=== PATIENT | female | born 1955 | race Caucasian/White ===

== ENCOUNTER 2016-11-02 16:40 | Emergency (ER) | payer MEDICARE, OTHER ==
[~2016-11-02] VITALS: Ht 157.5 cm; Wt 66.8 kg
[~2016-11-02 16:40] MED LIST: BACI28.4 TOP; DOCU-41 PO; ESOM40CA53 PO; FENT1PAT7 TRANSDERM; FURO-128 PO; GABA-502 PO; KLO1T PO; KLO2T PO; METO-301 PO; METO25TA6 PO; OXYC5TAB72 PO; POTA10CA42 PO; SENN1TAB90 PO; TRAZ-118 PO; ZLP10T PO
[2016-11-02 16:48] VITALS: BP 105/81; PULSE 104; RESP 15; O2SAT 95
[2016-11-02 19:56] LABS: BASOPHILS % (AUTO) 0.2 % (0-3); EOSINOPHILS % (AUTO) 0.5 % (0-5); MONOCYTES % (AUTO) 6.9 % (4-12); Mean Corpuscular Hemoglobin 30.6 pg (27.0-35.0); NEUTROPHILS % (AUTO) 61.9 % (40-74); Platelet Count 188 bil/L (150-400)
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
[2016-11-02] MEDS ORDERED: HYDROmorphone 1 mg/mL Inj IVPUSH ONE ×2 (20:55→22:40)
[2016-11-02] MEDS ORDERED: Ondansetron 2 mg/mL 2 mL Inj IVPUSH ONE (20:55)
[2016-11-02] MEDS ORDERED: 0.9% Sodium Chloride 1,000 ML IV ONE (20:55)
--- NOTE | 2016-11-02 21:05 | DRSVH ---
PROCEDURE: X-RAY CHEST, TWO VIEWS ([id number]) INDICATIONS: fever, cough TECHNIQUE: 2 views of the chest were acquired. COMPARISON: None. FINDINGS: Surgical changes and devices: None. Lungs and pleura: No pleural effusions or pneumothorax. Lungs are clear. Mediastinum: Mediastinal contours are normal. Heart size is normal. Bones and chest wall: No suspicious bony abnormalities. Soft tissues appear unremarkable. IMPRESSION: No acute cardiopulmonary findings. Dictated by: Jennifer Gonzalez M.D. on 11/02/2016 at 21:03 Approved by: Jennifer Gonzalez M.D. on 11/02/2016 at 21:03
[2016-11-02] MEDS ORDERED: Bupivacaine-MPF 0.5% 30 mL Inj ONE (21:29)
[2016-11-02 21:30] VITALS: BP 106/64; PULSE 72; RESP 20; O2SAT 96
[2016-11-02 22:51] LABS: APPEARANCE,CSF CLEAR (CLEAR); COLOR,CSF COLORLESS (COLORLESS); WHITE BLOOD CELL,CSF 0 /mm3 (0-5)
[2016-11-02] MEDS ORDERED: BENZ-12 PO (23:43)
[2016-11-02] MEDS ORDERED: ONDA8TAB10 PO (23:43)
[2016-11-03 00:04] VITALS: BP 106/64; PULSE 72; RESP 16; O2SAT 96
== END 2016-11-03 00:05 | disposition home or self-care (01) ==
LOC: SED 16:40
DX: J06.9 Acute upper respiratory infection, unspecified (principal); I10 Essential (primary) hypertension; K21.9 Gastro-esophageal reflux disease without esophagitis; Z88.2 Allergy status to sulfonamides; Z88.5 Allergy status to narcotic agent; Z88.8 Allergy status to other drugs, medicaments and biological substances
CPT/HCPCS: 36415; 62270; 71020; 80053; 82945; 84155; 85025; 87070; 87150; 87205; 87496; 87498; 87529; 87532; 87798; 87804; 89051; 96374; 96375; 96376; 99285; J1170; J2405; J7030

== ENCOUNTER 2017-01-31 22:35 | Inpatient (IN) | payer MEDICARE, OTHER ==
[~2017-01-31] VITALS: Ht 157.5 cm; Wt 61.4 kg
[~2017-01-31 22:35] MED LIST changes: +BENZ-12 PO; +ONDA8TAB10 PO
[2017-01-31 22:39] VITALS: BP 122/74; PULSE 100; RESP 16; O2SAT 94
[2017-01-31] MEDS ORDERED: 0.9% Sodium Chloride 1,000 ML IV ONE (23:27)
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
[2017-01-31 23:45] VITALS: BP 99/65; PULSE 83; RESP 12; O2SAT 96
[2017-02-01] VITALS (13 sets, daily range): BP systolic 95–156; BP diastolic 65–87; PULSE 60–79; RESP 12–20; O2SAT 94–98
[2017-02-01] MEDS ORDERED: cefTRIAXone Inj 2,000 MG in Dextrose 5% Minibag Plus 50 ML IV ONE ×2
[2017-02-01 00:06] LABS: BASOPHILS % (AUTO) 0.2 % (0-3); EOSINOPHILS % (AUTO) 0 % (0-5); MONOCYTES % (AUTO) 3.3 % (4-12); Mean Corpuscular Hemoglobin 31.2 pg (27.0-35.0); NEUTROPHILS % (AUTO) 85.3 % (40-74); Platelet Count 191 bil/L (150-400)
[2017-02-01 01:01] LABS: TROPONIN T 0.01 ug/L (0.0-0.011)
[2017-02-01] MEDS ORDERED: oxyCODONE-Acetamin 5-325 mg Tablet PO ONE (01:10)
[2017-02-01 01:14] LABS: APPEARANCE,URINE CLEAR (CLEAR,HAZY); COLOR,URINE YELLOW (YELLOW); OCCULT BLOOD,URINE NEGATIVE (NEGATIVE); PH,URINE 5.5 (5.0-8.0); UROBILINOGEN,URINE NORMAL (NORMAL)
[2017-02-01] MEDS ORDERED: Azithromycin Inj 500 MG in Dextrose 5% w/Vial Mate 250 ML IV ONE (02:20)
[2017-02-01] MEDS ORDERED: fentaNYL-PF 50 mCg/mL 2 mL Inj IVPUSH PRN (02:45)
[2017-02-01] MEDS ORDERED: 0.9% Sodium Chloride 1,000 ML IV ONE ×2 (02:50)
[2017-02-01] MEDS ORDERED: HYDROmorphone 0.5 mg/0.5 mL iSecure Syringe IVPUSH ONE (03:20)
[2017-02-01] MEDS ORDERED: Alum-Mag Hydrox-Simeth 30 mL Suspension PO PRN ×2 (03:20→03:35)
[2017-02-01] MEDS ORDERED: Albuterol 2.5 mg/3 mL Inhalation Solution NEB PRN (03:35)
[2017-02-01] MEDS ORDERED: HYDROcodone-APAP 5-325 mg Tablet PO PRN (03:35)
[2017-02-01] MEDS ORDERED: Albuterol-Ipratropium 3 mL Inhalation Solution NEB SCH (04:30)
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
[2017-02-01] MEDS ORDERED: LORazepam 1 mg Tablet PO PRN (04:55)
[2017-02-01 05:15] LABS: BASOPHILS % (AUTO) 0.2 % (0-3); EOSINOPHILS % (AUTO) 0 % (0-5); MONOCYTES % (AUTO) 2.7 % (4-12); Mean Corpuscular Hemoglobin 30.9 pg (27.0-35.0); Mean Corpuscular Volume 95.6 fL (81-100); NEUTROPHILS % (AUTO) 84.3 % (40-74); Platelet Count 159 bil/L (150-400)
[2017-02-01] MEDS: 0.9% Sodium Chloride 1,000 ML IV SCH ×2 (05:28→16:11)
[2017-02-01] MEDS: Ondansetron 2 mg/mL 2 mL Inj IVPUSH PRN ×2 (05:53→10:15)
[2017-02-01] MEDS: Albuterol-Ipratropium 3 mL Inhalation Solution NEB SCH ×4 (06:00→21:20)
[2017-02-01] MEDS ORDERED: OXYC-466 PO (07:14)
--- NOTE | 2017-02-01 07:20 | NUR ---
Admission Pt arrived from ER to [facility] # [id number] approx at 0355. Pt denies SOB. SPO2 mid-high 90s on RA. No respiratory distress noted. VSS. Admission assessment and screening completed. Med-Rec updated. Pt stated she had Flu swap done in urgent care clinic on Friday01/31/17. aware. No need to obtain another flu swap. Pt C/O GREEN 07/01. She was medicated with Oxycodone. Pt vomited x 1. Medicated with Zofran. Pt denies N/V. Another Oxycodone given. No overt complications noted.
[2017-02-01] MEDS ORDERED: RIZA10TA PO (07:46)
--- NOTE | 2017-02-01 10:11 | DRSVH ---
PROCEDURE: CT ANGIO CHEST PULMONARY EMBOLISM ([id number]) INDICATIONS: short of breath, chest pain, abnormal xray TECHNIQUE: After the administration of intravenous contrast, 2 mm thick sections acquired from the pulmonary api gene to the posterior costophrenic angles. 3-dimensional maximum intensity projection (MIP) coronal a nd sagittal reformats were then acquired through the thorax. For radiation dose reduction, the follo wing was used: automated exposure control, adjustment of mA and/or kV according to patient size. COMPARISON: [facility], , XR CHEST 2VW, 01/31/2017, 17:42. FINDINGS: Image quality: Excellent. Pulmonary arteries: Pulmonary arteries are normal in size, and demonstrate no intraluminal filling d efects to suggest central pulmonary embolism. Lungs and pleura: Large area of left perihilar consolidation is seen, with mild surrounding groundgl ass opacities. No pleural effusion or pneumothorax seen. There is mild by basilar atelectasis/scarrin g. Mediastinum: Heart size is mildly enlarged, without pericardial effusion. No mediastinal or hilar a denopathy. Thoracic aorta is normal in caliber and enhancement. Esophagus is normal in caliber, wit hout hiatal hernia. Bones and chest wall: No suspicious bony lesions. Ribs and thoracic spine appear intact throughout. Thyroid gland grossly unremarkable. No axillary or supraclavicular adenopathy. Abdomen: Visualized upper abdominal solid organs appear normal in the early arterial phase of enhanc ement. IMPRESSION: Large area of left perihilar, masslike consolidation presumably pneumonia although recommend short in terval followup with repeat radiographs or CT after treatment, to exclude neoplasm. No evidence of pulmonary embolism. Mild cardiomegaly. Dictated by: Duarte Wheatley M.D. on 02/01/2017 at 10:05 Approved by: Duarte Wheatley M.D. on 02/01/2017 at 10:10
--- NOTE | 2017-02-01 11:39 | PCM.PNMED ---
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 Patient presented to the ED for complaints of high fever and cough x 2 days. She was seen at UC day prior to admission and given a shot of Rocephin and started on a Z-venkata, but was instructed to go to the ED if symptoms worsen. Her fever did not improve, she had nonproductive cough, myalgias, nausea, and some vomiting, dizziness, and headache, so she came to the ED for further treatment. She has been unable to tolerate much oral intake and has had decreased urine output. She currently lives in [place] with her family, and has not had any sick contacts. She is currently retired and denies any recent travels or recent healthcare contact. She reports the symptoms came on fairly abruptly 2 days ago. She denies any history of smoking or COPD. She does have asthma and has been using her inhalers more frequently. In the ED she was noted to be febrile with temperature 37.9C. Initial CBC was remarkable for a hemoglobin of 11.3 and white count was 5.7. CMP was remarkable for hyponatremia with sodium of 130, lactic acid 1.7; Her d-dimer was moderately elevated, a CTA of her chest was performed which showed no evidence of pulmonary embolism, but there was a masslike consolidation left upper lobe, with diffuse left-sided reticulonodular infiltrates which is suspicious for pneumonia, but a neoplasm could not be excluded. Patient was started on IV Rocephin and IV azithromycin for presumed community- acquired pneumonia Patient c/o SOB, started prior to admission and had been getting worse, now improving, associated with general weakness; alleviated by rest, exacerbated by exertion. Patient is on 2 L O2 via NC. Code status: Patient would like to be full code. Exam Vital Signs Vital Sign - Last Date Time Temp Pulse Resp B/P Pulse Ox O2 Delivery O2 Flow Rate FiO2 02/01/17 11:01 62 02/01/17 09:30 36.3 12 133/74 97 Nasal Cannula 1.00 Intake and Output 01/31/17 01/31/17 02/01/17 Cumulative From/Thru 15:00 23:00 07:00 01/31/17 22:39 - 02/01/17 06:20 Intake Total 2366 ml 2366 ml Output Total 450 ml 450 ml Balance 1916 ml 1916 ml Intake Oral 250 ml 250 ml IV Total 2116 ml 2116 ml Output Urine Total 450 ml 450 ml Exam PHYSICAL EXAM: GENERAL: sleepy, moderate distress, cooperative HEAD: atraumatic, normocephalic, no bruises. EYES: NEFTALY, EOMI, anicteric, able to fully open and close eyelids SKIN: Skin color normal, turgor normal/decreased. No visible rashes or lesions. EAR, NOSE, MOUTH, THROAT: Lips, oral mucosa, tongue gums, oropharynx are moist , pink, no lesions. Ears normal appearance, no lesions. NECK: no jugulovenous distention, no carotid bruits, carotid pulse normal contour, No carotid bruit, supple, no enlarged lymph nodes appreciated; ROM normal. RESPIRATORY: Crackles b/l. Good diaphragmatic excursion. Normal percussion sound. CARDIAC: normal S1 and S2; no rubs, murmurs, or gallops; regular rate and rhythm ABDOMEN: Abdomen soft, non-tender. BS normal. No masses or organomegaly. MUSCULOSKELETAL: ROM full, muscles are not tender EXTREMITIES: nopitting edema in LE, no deformities, clubbing or skin discoloration. NEURO: Alert, oriented X 3, Sensation grossly intact., Cranial nerves II-XII intact, Grossly normal motor function. PULSES: 2+ radial, 2+ dorsalis pedis, 2+ carotid REVIEW OF SYSTEMS: GENERAL: +malaise, no fevers., SEE HPI HEENT: Negative for frequent or significant headaches, No changes in hearing or vision, no nose bleeds or other nasal problems NECK: Negative for lumps, goiter, pain and significant neck swelling RESPIRATORY: + for shortness of breath. CARDIOVASCULAR: Negative for chest pain, leg swelling or palpitations. All other reviewed and negative other than HPI. IVs and Medications Medications Reviewed: Medications were reviewed in detail Lab and Diagnostics Result Diagram: 02/01/17 0505 02/01/17 0505 X-Rays, CTs and MRIs ECG Interpretation ECG Interpretation: Sinus rhythm rate 84 T-wave inversion V1-V4 unchanged from prior 05/13/15 Time: 23:39 Interpreted by: ED physician CT Chest Interpretation CONCLUSION: No evidence of pulmonary embolism. Masslike consolidation in the left upper lobe with diffuse left-sided reticulonodular infiltrate, nonspecific, probable pneumonia. Neoplasm is not excluded. Nonenlarged mediastinal lymph nodes. Mild cardiomegaly. Transmitted to the ED at 02/01/2017 - 2:12:55 AM PDT Study type: CT pulm angiogram Interpretation / Wet Read by: Interpret - Radiologist (Lucille Brown M.D. 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 Patient was diagnosed with sepsis present on admission, acute hypoxic respiratory failure, pneumonia. Sepsis, present on admission. Acute hypoxic respiratory failure, POA, pneumonia , Mass like lesion on CT scan - Continue with antibiotics, respiratory therapy, oxygen - Follow up blood cultures - Viral respiratory PCR panel pending, along with urine strep and urine Legionella Elevated glucose, acute -hgba1c pending Hyponatremia.Dehydration. - Improved - Continue to hydrate with ivf History of CHF Patient reports a history of CHF, but last echo showed LVEF of 60% with no discernible diastolic dysfunction Chronic pain syndrome - Continue with home medications Hypertension - Hold blood pressure medications for now Hyperlipidemia,GERD, Chronic migraines, Anxiety and depression Continue with home medications Anemia - stable - most likely anemia of chronic disease - stable, no signs of bleeding Plan - Monitor for signs of bleeding and transfuse if Hb is less than 8 and patient or POA(next of junior) consents to transfusion, monitor CBC daily DVT PROPHYLAXIS: Lovenox sq Disposition: discharge in 1-3 days after patient improves. Labs, radiology tests, Tele and ECG reviewed. Plan of care, medication side effects, home medication, diagnostic procedures and available alternatives were discussed and reviewed with patient. All questions answered. Patient verbalized understanding, approved and agreed to plan of care. Given patient's current condition, I certify, in my opinion inpatient services greater than two midnights are medically necessary for this patient. Please see H&P and MD progress notes for additional information about patient's course of treatment. Pain Evaluation: Adequate Pain Control VTE Prophylaxis: Sub-Q Enoxaparin, SCDs Resuscitation Status: CPR: Attempt Resuscitation Viktor iSn MD February 01, 2017 11:39 Chronic migraines, POA Resume patient's home medications when appropriate . Anxiety and depression, POA Resume patient's home medications when appropriate. Tylenol when necessary for fever/pain Zofran when necessary for nausea Bowel regimen when necessary for constipation CODE STATUS: Full resuscitation Disposition: Patient is admitted under inpatient status with expected length of stay greater than 2 midnights due to risk of adverse events, decompensation, and medical complexity VTE Prophylaxis: Sub-Q Enoxaparin, SCDs Resuscitation Status: CPR: Attempt Resuscitation Viktor Sin MD February 01, 2017 11:39
--- NOTE | 2017-02-01 15:20 | NUR ---
Social work: initial Assessment Data & Assessment: See initial assessment. EMR reviewed. patient is a 61 y/o female that admitted on 02/01/17 for pneumonia per H&P. SW met with patient at bedside to complete initial assessment, SW role reviewed, initial assessment complete and dc planning discussed. patient's PCP is Dr. tracey Freire. Patient confirmed that he r insurance is Medicare and secondary. Patient reports no LTC or VA benefits. Patient does not have a re-admit score at this time. Mixed Signal Design Engineer provided patient with Advance Directive/DPOA paperwork. Patient lives in a two story home with her spouse. patient has 4 steps to enter and 14 steps on the inside. Patient is independent with amulation and does not drive. patient reports no HH or SNF history. patient does not have any current discharge needs, but SW will continue to follow and assist patient. SW wrote contact information on patient's white board. Plan: Patient will likely discharge home with spouse via POV. SW will continue to follow and assist patient throughout stay. Keith Min LMSW, KARLA Addendum: 02/01/17 at 1534 by KEITH ESPINAL Amended: Links added.
[2017-02-01] MEDS: oxyCODONE-Acetamin 10-325 mg Tablet PO PRN ×2 (16:10→22:12)
--- NOTE | 2017-02-01 17:24 | NUR ---
Continued headache, intermittent nausea. Oxycodone, Imitrex, Zofran helpful. Up to bathroom w/ SBA. Less somnolent this afternoon. MD updated patient/family regarding plan of care, medications, etc. Daughter expressing anger/hostility towards staff stating her mother was not receiving enough Oxycodone or her home medications. Concern expressed to family/patient regarding her "usual medications" and persisting somnolence. concerned this evening for need to "monitor her oxygen", indicating that she has been known to desat while sleeping and may have sleep apnea. Will monitor with MP30 w/ pulse oximetry.
[2017-02-01] MEDS ORDERED: Ondansetron 2 mg/mL 2 mL Inj IVPUSH PRN (19:20)
[2017-02-01] MEDS: Pantoprazole 40 mg ER24 Tablet PO SCH (20:04)
[2017-02-01] MEDS: Azithromycin Inj 500 MG in Dextrose 5% w/Vial Mate 250 ML IV SCH (20:06)
[2017-02-01] MEDS: cefTRIAXone Inj 2,000 MG in Dextrose 5% Minibag Plus 50 ML IV SCH (21:42)
[2017-02-02] VITALS (13 sets, daily range): BP systolic 104–123; BP diastolic 61–76; PULSE 59–91; RESP 16–20; O2SAT 93–100
[2017-02-02] MEDS: oxyCODONE-Acetamin 10-325 mg Tablet PO PRN ×3 (04:29→16:51)
--- NOTE | 2017-02-02 04:31 | NUR ---
NOC PT is A/Ox3. Lungs are diminished. PT is on 2l NC while awake and 4lNC when asleep. PT is a mouth breather and is also mildly sedated, which contribute to her desaturation at noc. ACCOUNTS ADJUSTABLE CLERK on continuous. Daughter Mine at the bedside. Dtr is overly involved with pt's care and seems to suggest to her mom what meds to take, when, where and why. This is a high tension room because of family presence. Mine was very aggressive with hammerer tab Edward and was also quite short with this RN once when trying to offer an explanation for pt's low grade temp as she had on 4 blankets, fleece pj bottoms, and SCD's. PT is much more laid back when family not present and if they continue to interfere with care, their continued presence may need to be reevaluated. Nursing sup also spoke with pt and dtr. Otherwise, pt continues to c/o pain in various places and has not rated her pain below a 7 although she is mildly sedated. Tylenol given for temp of 101 and then ice packs used when tylenol was ineffective. PT only kept them on for about 20minutes. PT is a SBA to BR with FWW. Voiding adequate amounts. WIll CTM.
[2017-02-02] MEDS: Albuterol-Ipratropium 3 mL Inhalation Solution NEB SCH ×4 (07:31→20:27)
[2017-02-02] MEDS: Pantoprazole 40 mg ER24 Tablet PO SCH ×2 (08:36→20:00)
[2017-02-02] MEDS: Polyethylene Glycol (PEG) 17 Gm Powder PO PRN (08:36)
[2017-02-02 10:06] LABS: Mean Corpuscular Hemoglobin 31.2 pg (27.0-35.0); Mean Corpuscular Volume 97.7 fL (81-100)
[2017-02-02] MEDS ORDERED: Glucose 40% Oral Gel 15 Gm Tube PO PRN (10:52)
--- NOTE | 2017-02-02 11:05 | PCM.PNMED ---
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 Patient was diagnosed with sepsis, acute hypoxic respiratory failure secondary to pneumonia. Hospital day #2. Overnight: No acute events. Per nursing report there was some discord with the patient's family. Today: The patient appears somnolent and is stating that her breathing is unchanged for yesterday but that she overall feels terrible. She is forgetful and repeats questions during the visit. She denies any chest pain but notes a intermittent headache and other pains and aches, cough. The remainder of the review of systems is negative except as noted above. Exam Vital Signs Vital Sign - Last Date Time Temp Pulse Resp B/P Pulse Ox O2 Delivery O2 Flow Rate FiO2 02/02/17 09:49 77 02/02/17 08:42 Supplement Oxygen 02/02/17 08:25 37.0 18 105/61 95 1.00 Intake and Output 02/01/17 02/01/17 02/02/17 Cumulative From/Thru 15:00 23:00 07:00 01/31/17 22:39 - 02/02/17 06:21 Intake Total 1100 ml 240 ml 3706 ml Output Total 2050 ml 900 ml 3400 ml Balance -950 ml -660 ml 306 ml Intake Oral 200 ml 240 ml 690 ml IV Total 900 ml 3016 ml Output Urine Total 2050 ml 900 ml 3400 ml Exam GENERAL: sleepy, in no acute distress, cooperative, forgetful. HEAD: atraumatic, normocephalic, no bruises. EYES: NEFTALY, EOMI, anicteric, able to fully open and close eyelids SKIN: Skin color normal, turgor normal/decreased. No visible rashes or lesions. EAR, NOSE, MOUTH, THROAT: Lips, oral mucosa, tongue gums, oropharynx are moist , pink, no lesions. NECK: no jugulovenous distention, supple, no enlarged lymph nodes appreciated; ROM normal. RESPIRATORY: Crackles b/l, worse on the left. Good diaphragmatic excursion. CARDIAC: normal S1 and S2; no rubs, murmurs, or gallops; regular rhythm ABDOMEN: Abdomen soft, non-tender. BS normal. No masses or organomegaly. MUSCULOSKELETAL: ROM full, muscles are not tender EXTREMITIES: no pitting edema in lower extremities, no deformities, clubbing or skin discoloration. NEURO: Alert, oriented X 3, Cranial nerves II-XII intact, Grossly normal motor function. IVs and Medications Medications Reviewed: Medications were reviewed in detail Lab and Diagnostics Result Diagram: 02/02/17 0950 02/01/17 0505 X-Rays, CTs and MRIs CT ANGIO CHEST PULMONARY EMBOLISM IMPRESSION: Large area of left perihilar, masslike consolidation presumably pneumonia although recommend short interval followup with repeat radiographs or CT after treatment, to exclude neoplasm. No evidence of pulmonary embolism. Mild cardiomegaly. Dictated by: Duarte Wheatley M.D. 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 Patient was diagnosed with sepsis, acute hypoxic respiratory failure secondary to pneumonia. Hospital day #2. Sepsis, present on admission. Active. Secondary to pneumonia. - PNA presenting with peribronchial consolidation and mass-like lesion on CTA of chest - Follow up blood cultures - Viral respiratory PCR panel pending - urine strep and urine Legionella antigens negative - Antibiotic day #2, on Rocephin and Azithromycin for CAP Acute hypoxic respiratory failure, present on admission. Active. -Supplemental O2 as needed, respiratory therapy following Hyperglycemia, present on admission, acute -hgba1c pending -Patient continues to have a blood glucose of over 180, will initiate low-dose correctional lispro Hypovolemic hyponatremia, present on admission, resolved. -Responded nicely to normal saline, will continue. Normocytic normochromic anemia, present on admission, active, stable. -Iron studies ordered -We will continue to monitor with daily CBC. History of CHF - Patient reports a history of CHF, but last echo showed LVEF of 60% with no discernible diastolic dysfunction Chronic pain syndrome - stable - Continue with home medications Hypertension - stable - Hold blood pressure medications for now Chronic problems, present on admission: Hyperlipidemia - stable -Continue with home medications GERD -Continue with home medications Chronic migraines -Continue with home medications - patient never had immiging studies to evaluate these migranes. - will order MRI of the brain Anxiety and depression -Continue with home medications DVT PROPHYLAXIS: Lovenox sq Disposition: Likely patient will be in the hospital for 2-3 more days as she is evaluated and treated for the above conditions. VTE Prophylaxis: Sub-Q Enoxaparin, SCDs VTE Mechanical Devices: Intermittant Pneumatic CD Resuscitation Status: CPR: Attempt Resuscitation Time spent 35 min Attending Statement Patient was seen and examined by me today. I confirmed pertinent physical exam findings and agree with physical exam as documented by resident. I agree with overall assessment and plan of care as documented. Labs, radiology tests reviewed. Plan of care, medication side effects, home medication, diagnostic procedures and available alternatives were discussed and reviewed with the patient. All questions answered. Patient verbalized understanding, approved and agreed to plan of care. Melida Jimenez DO February 02, 2017 10:40 Viktor Sin MD February 02, 2017 17:34
[2017-02-02 11:41] LABS: Unsaturated Iron Binding 250.8 ug/dL
[2017-02-02] MEDS: Insulin LISPRO 300 Unit/3 mL Inj SUBQ SCH ×3 (12:00→21:56)
--- NOTE | 2017-02-02 18:25 | NUR ---
Temperature/GREEN/Respiratory Patient 1730 vital signs showed temp of 100.7 F. Administered 10/325 [place] per patient request in addition to 650 PO Tylenol. Rechecked approx 1 hour later, temp 100.2 F -- paged. No reports of chest pain/pressure/discomfort. Tele SR 70s with no ectopy. Reports no SOB at rest, reports "some" SOB with exertion. SPO2 weaned from 3L NOC to 0.5L NC while awake, SPO2 at 94. RR within normal limits. Intermittent cough -- non productive. Reports moderate nausea throughout shift, PO Reglan given x2. Reports chronic constipation, states "it's been this way since I was a little kid", not uncommon for her to go for a few weeks without BM (last documented BM 01/20/17). Administered Docusate and Miralax, no emesis. Voiding urine without complication.Alert and oriented x3, drowsy. Patient has had 6-8/10 GREEN throughout shift -- [place] and tylenol provide "little to no relief" -- MD consulted, MRI ordered.
[2017-02-02] MEDS: cefTRIAXone Inj 2,000 MG in Dextrose 5% Minibag Plus 50 ML IV SCH (20:00)
[2017-02-02] MEDS: Azithromycin Inj 500 MG in Dextrose 5% w/Vial Mate 250 ML IV SCH (22:10)
[2017-02-03] VITALS (12 sets, daily range): BP systolic 105–122; BP diastolic 70–88; PULSE 50–88; RESP 16–20; O2SAT 93–98
--- NOTE | 2017-02-03 01:35 | NUR ---
Resp/headache Pt on 2L via NC overnight CPOx mid 90s O2 sats, reporting sob with activity. Pt reporting headache back up to 05/01, pt given Imitrex per eMAR and oxycodone for generalized body pain/aches. Pt requested Tylenol as well because she "felt feverish" pt slightly warm to touch but temp was 36.8. Pt also given Trazodone, Clonazepam and Ambien per eMAR for bedtime. Pt on tele and has been SR 60s.
[2017-02-03] MEDS: Albuterol-Ipratropium 3 mL Inhalation Solution NEB SCH ×4 (07:44→19:39)
[2017-02-03 07:48] LABS: BASOPHILS % (AUTO) 0.2 % (0-3); EOSINOPHILS % (AUTO) 1.4 % (0-5); MONOCYTES % (AUTO) 9.7 % (4-12); Mean Corpuscular Hemoglobin 30.5 pg (27.0-35.0); Mean Corpuscular Volume 96.1 fL (81-100); NEUTROPHILS % (AUTO) 57.4 % (40-74); Platelet Count 197 bil/L (150-400)
[2017-02-03] MEDS: Insulin LISPRO 300 Unit/3 mL Inj SUBQ SCH ×4 (08:00→22:00)
[2017-02-03] MEDS: Pantoprazole 40 mg ER24 Tablet PO SCH ×2 (08:40→23:01)
--- NOTE | 2017-02-03 09:39 | DRSVH ---
PROCEDURE: MRI BRAIN WITH AND WITHOUT CONTRAST ([id number]) INDICATIONS: headaches TECHNIQUE: Noncontrast axial T1 spin echo, axial T2 fast spin echo, sagittal and axial FLAIR, coronal T2 fast sp in echo, axial gradient echo, axial diffusion and ADC through the brain. After the administration of contrast, axial and coronal T1 spin echo with fat saturation through the brain. COMPARISON: [facility], CT, BRAIN W/O CONTRAST, 09/18/2013, 0:47. FINDINGS: Image quality: Excellent. CSF spaces: Basal cisterns are patent. No extra-axial fluid collections. Ventricles are normal in size and shape. Brain: No midline shift. No intracranial bleeds or masses. No abnormal intracranial enhancement. There is cerebral volume loss for age. There is periventricular white matter chronic small vessel is chemic change. The brainstem appears normal. Diffusion-weighted images demonstrate no acute ischemi c insults. No chronic ischemic insults. Normal intravascular flow voids are present. Skull and face: Calvarial marrow is normal in signal. Orbits appear normal. Sinuses: Bilateral maxillary sinus disease, which would better evaluated with CT. 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 Scant bilateral mastoid air cell fluid IMPRESSION: Bilateral (T2 hypointense) maxillary sinus disease as detailed above. Asymmetric hypoplastic appearan ce of the right maxillary sinus could represent silent sinus syndrome, versus chronic hypoplasia. Scattered bilateral mastoid air cell fluid. This is technically age indeterminate and recommend clini lorri correlation. No abnormal enhancement. Dictated by: Duarte Wheatley M.D. on 02/03/2017 at 9:24 Approved by: Duarte Wheatley M.D. on 02/03/2017 at 9:37
--- NOTE | 2017-02-03 13:23 | PCM.PNMED ---
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 Patient was diagnosed with sepsis, acute hypoxic respiratory failure secondary to pneumonia. Hospital day #3. Overnight: No acute events. Patient continued to complain of headache. He also complained of subjective fever however temperature was normal upon measurement. Today: She is forgetful and repeats questions during the visit. Patient continues to complain of headaches are not responding to Imitrex. She noted chills overnight. She continues to have a nonproductive cough. She denies any chest pain or shortness of breath. She does complain of constipation, she has iron deficiency anemia, she will need a colonoscopy after her infection resolves. She also c/o frequent headaches. Patient had MRI today which was positive for sinusitis. The remainder of the review of systems is negative except as noted above. Exam Vital Signs Vital Sign - Last Date Time Temp Pulse Resp B/P Pulse Ox O2 Delivery O2 Flow Rate FiO2 02/03/17 11:45 50 20 98 Nasal Cannula 1.50 02/03/17 08:32 37.5 105/70 Intake and Output 02/02/17 02/02/17 02/03/17 Cumulative From/Thru 15:00 23:00 07:00 01/31/17 22:39 - 02/03/17 06:01 Intake Total 1148 ml 780 ml 5634 ml Output Total 600 ml 2250 ml 6250 ml Balance 548 ml -1470 ml -616 ml Intake Oral 550 ml 400 ml 1640 ml IV Total 598 ml 380 ml 3994 ml Output Urine Total 600 ml 2250 ml 6250 ml # Voids 1 5 6 # Bowel Movements 0 0 Exam GENERAL: sleepy, in no acute distress, forgetful. HEAD: atraumatic, normocephalic, no bruises. EYES: NEFTALY, EOMI, anicteric, able to fully open and close eyelids SKIN: Skin color normal, turgor normal/decreased. No visible rashes or lesions. EAR, NOSE, MOUTH, THROAT: Lips, oral mucosa, tongue gums, oropharynx are moist , pink. NECK: no jugulo venous distention, supple; ROM normal. RESPIRATORY: Crackles bilaterally, worse on the left. Good diaphragmatic excursion. CARDIAC: normal S1 and S2; no rubs, murmurs, or gallops; regular rhythm ABDOMEN: Abdomen soft, non-tender. BS normal. No masses or organomegaly. MUSCULOSKELETAL: ROM full, muscles are not tender EXTREMITIES: no pitting edema in lower extremities, no clubbing or skin discoloration. NEURO: Alert, oriented X 3, Cranial nerves II-XII intact, Grossly normal motor function. IVs and Medications Medications Reviewed: Medications were reviewed in detail Lab and Diagnostics Result Diagram: 02/03/17 0735 02/03/17 0735 X-Rays, CTs and MRIs CT ANGIO CHEST PULMONARY EMBOLISM IMPRESSION: Large area of left perihilar, masslike consolidation presumably pneumonia although recommend short interval followup with repeat radiographs or CT after treatment, to exclude neoplasm. No evidence of pulmonary embolism. Mild cardiomegaly. Dictated by: Duarte Wheatlye M.D. on 02/01/2017 at 10:05 MRI BRAIN WITH AND WITHOUT CONTRAST IMPRESSION: Bilateral (T2 hypointense) maxillary sinus disease as detailed above. 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 Scattered bilateral mastoid air cell fluid. This is technically age indeterminate and recommend clinical correlation. No abnormal enhancement. Dictated by: Duarte Wheatley M.D. 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 Patient was diagnosed with sepsis, acute hypoxic respiratory failure secondary to pneumonia. Hospital day #3 Acute hypoxic respiratory failure, present on admission. Active. Sepsis, present on admission. Active. Secondary to pneumonia. - PNA presenting with peribronchial consolidation and mass-like lesion on CTA of chest - Follow up blood cultures - Viral respiratory PCR panel negative - urine strep and urine Legionella antigens negative - Antibiotic day #3, on Rocephin and Azithromycin for CAP -Supplemental O2 as needed, respiratory therapy following Normocytic normochromic anemia, present on admission, active, stable. -Iron low, sat low, TIBC normal, probably iron deficiency anemia as well as anemia of chronic disease -We will continue to monitor with daily CBC. -Start iron supplementation - patient will need to evaluate the cause of anemia after her infection resolves. Hyperglycemia, present on admission, acute -hgba1c pending -Patient continues to have a blood glucose of over 180, will initiate low-dose correctional lispro Hypovolemic hyponatremia, present on admission, resolved. -Responded nicely to normal saline. Patient can take by mouth we will stop IV fluids. ?History of CHF - Patient reports a history of CHF, but last echo showed LVEF of 60% with no discernible diastolic dysfunction Chronic pain syndrome - stable - Continue with home medications Hypertension - stable - Hold blood pressure medications for now Chronic problems, present on admission: Hyperlipidemia - stable -Continue with home medications GERD -Continue with home medications Chronic migraines -Continue with home medications -MRI not revealing of any acute pathology in the brain. Note sinusitis. Sinusitis, chronic -Not under control Constipation, chronic, secondary to opiates -stable, not under control -Mag citrate Anxiety and depression -Continue with home medications DVT PROPHYLAXIS: Lovenox sq Disposition: Likely patient will be in the hospital for 2-3 more days as she is evaluated and treated for the above conditions. VTE Prophylaxis: Sub-Q Enoxaparin, SCDs VTE Mechanical Devices: Intermittant Pneumatic CD Resuscitation Status: CPR: Attempt Resuscitation Time spent 35 min Attending Statement Patient was seen and examined by me today. I confirmed pertinent physical exam findings and agree with physical exam as documented. I agree with overall assessment and plan of care as documented. Labs, radiology tests reviewed. Plan of care, medication side effects, home medication, diagnostic procedures and available alternatives were discussed and reviewed with the patient. All questions answered. Patient verbalized understanding, approved and agreed to plan of care. Melida Jimenez DO February 03, 2017 12:28 Viktor Sin MD February 03, 2017 15:01
[2017-02-03] MEDS ORDERED: Sodium Chloride NAS 45 mL Spray NASAL PRN (13:25)
--- NOTE | 2017-02-03 16:22 | NUR ---
Social Work Note: Continued Discharge Planning Data& Assessment: Per pt is not medically ready for discharge at this time. SW met with pt and pt family at bedside to check in and assess for any unmet needs. Pt is requiring oxygen at this time and normally does not wear any oxygen at home. Pt and pt family are just anxious for her to medically improve at this time. Pt ambulating at baseline in her room. Pt and pt family deny any needs at this time. SW to continue to follow. Plan: Anticipated discharge home via POV when medically ready. Pt and pt family deny any needs at this time. SW to continue to follow. DONELL Treadwell
--- NOTE | 2017-02-03 17:51 | NUR ---
Pain Pt reporting a constant headache today up to "05/01". She took imitrex x1 with little relief in symptoms. Pt receiving oxycodone 10mg q 6 hours and tylenol x2 during this shift. Pt reporting nausea related to her headache and is having a poor appetite. She was given reglan x2 for nausea.
[2017-02-03] MEDS: cefTRIAXone Inj 2,000 MG in Dextrose 5% Minibag Plus 50 ML IV SCH (20:50)
[2017-02-03] MEDS: Polyethylene Glycol (PEG) 17 Gm Powder PO PRN (23:00)
[2017-02-03] MEDS: oxyCODONE-Acetamin 10-325 mg Tablet PO PRN (23:01)
[2017-02-03] MEDS: Senna-Docusate 8.6-50 mg Tablet PO PRN (23:01)
[2017-02-03] MEDS: Azithromycin Inj 500 MG in Dextrose 5% w/Vial Mate 250 ML IV SCH (23:06)
[2017-02-04] VITALS (14 sets, daily range): BP systolic 101–119; BP diastolic 60–81; PULSE 57–94; RESP 14–18; O2SAT 93–97
--- NOTE | 2017-02-04 04:36 | NUR ---
Pain/Constipation/Respiratory Pt continues to c/o headache 6-07/01. Administered PRN Imitrex as well as Percocet and somewhat effective. Pt states she will get some relief for a short period of time. Pt also c/o chronic constipation and has not had a BM in weeks. Pt given mag citrate, Miralax, and senna without any BM at this time. Pt states this is a chronic condition for her. Pt on 1L NC with SpO2 94-96% pt also able to tolerate RA for a few hours with SpO2 92-95%. VSS and Tele SR.
[2017-02-04] MEDS: oxyCODONE-Acetamin 10-325 mg Tablet PO PRN ×3 (06:32→21:11)
[2017-02-04] MEDS: Albuterol-Ipratropium 3 mL Inhalation Solution NEB SCH ×4 (07:12→20:23)
[2017-02-04] MEDS: Insulin LISPRO 300 Unit/3 mL Inj SUBQ SCH ×2 (08:00→12:00)
[2017-02-04 08:30] LABS: BASOPHILS % (AUTO) 0.2 % (0-3); EOSINOPHILS % (AUTO) 3.9 % (0-5); Mean Corpuscular Hemoglobin 30.2 pg (27.0-35.0); Mean Corpuscular Volume 96.2 fL (81-100); NEUTROPHILS % (AUTO) 57.3 % (40-74); Platelet Count 206 bil/L (150-400)
[2017-02-04] MEDS: Pantoprazole 40 mg ER24 Tablet PO SCH ×2 (08:42→20:27)
[2017-02-04] MEDS: Senna-Docusate 8.6-50 mg Tablet PO PRN (08:42)
[2017-02-04] MEDS: Polyethylene Glycol (PEG) 17 Gm Powder PO PRN (08:47)
--- NOTE | 2017-02-04 11:25 | DRSVH ---
PROCEDURE: X-RAY KUB ([id number]) INDICATIONS: ?constipation TECHNIQUE: One view of the abdomen acquired. COMPARISON: [facility], CT, CT ABD PELVIS W CON, 05/11/2015, 21:56. FINDINGS: Surgical changes and devices: None. Bowel: Nonspecific bowel gas pattern is present. There are short air-fluid levels present within gas -filled bowel loops involving the right mid abdomen and upper quadrant, otherwise the bowel gas patte rn is normal. No pneumatosis or bowel wall thickening. Soft tissues: No suspicious abdominal calcifications. Visualized solid organ contours appear normal in size. Multiple left flank and pelvic calcifications redemonstrated similar to previous CT scan. Bones: No suspicious bony lesions. IMPRESSION: Nonspecific bowel gas pattern. If patient's symptoms persist, recommend repeat imaging or CT. Dictated by: Edward Kwan [facility] Interpreted: Angela Loza MD on 02/04/2017 at 11:22 Transcribed by: SUSAN on 02/04/2017 at 11:24 Approved by: Angela Loza MD, PhD on 02/04/2017 at 15:09
--- NOTE | 2017-02-04 11:25 | DRSVH ---
PROCEDURE: X-RAY CHEST ONE VIEW, PORTABLE ([id number]) INDICATIONS: PNEUMONIA TECHNIQUE: One view of the chest was acquired. COMPARISON: [facility], CR, CHEST 1VW (PORTABLE), 09/17/2013, 23:59. [facility] ital, CT, CT ANGIO CHEST PE, 02/01/2017, 1:56. [facility], CR, XR CHEST 2VW, 01/31/2017, 17:42. FINDINGS: Surgical changes and devices: None. Lungs and pleura: Interval increase in multifocal bilateral airspace opacities, most notably within t he left upper lobe which is masslike. Mediastinum: Mediastinal contours appear normal. Heart size is normal. Bones and chest wall: No suspicious bony lesions. Overlying soft tissues appear unremarkable. IMPRESSION: Worsening multifocal air space opacities likely pneumonia. Continued radiographic surveil arnel to resolution is recommended to exclude underlying neoplastic process. Dictated by: Edward SILVERMAN Interpreted: Angela Loza MD on 02/04/2017 at 11:19 Transcribed by: SUSAN on 02/04/2017 at 11:22 Approved by: Angela Loza MD, PhD on 02/04/2017 at 15:09
--- NOTE | 2017-02-04 13:26 | PCM.PNMED ---
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 Patient was diagnosed with sepsis, acute hypoxic respiratory failure secondary to pneumonia. Hospital day #4. Overnight: No acute events. Today: She is forgetful and repeats questions during the visit. The patient states she still feels quite fatigued and overall terrible. She has been walking around the room but not outside. The remainder of the review of systems is negative except as noted above. Exam Vital Signs Vital Sign - Last Date Time Temp Pulse Resp B/P Pulse Ox O2 Delivery O2 Flow Rate FiO2 02/04/17 10:52 68 02/04/17 10:49 16 94 Nasal Cannula 1.00 02/04/17 08:29 36.8 105/66 Intake and Output 02/03/17 02/03/17 02/04/17 Cumulative From/Thru 15:00 23:00 07:00 01/31/17 22:39 - 02/04/17 05:45 Intake Total 700 ml 861 ml 7195 ml Output Total 650 ml 450 ml 7350 ml Balance 50 ml 411 ml -155 ml Intake Oral 700 ml 500 ml 2840 ml IV Total 361 ml 4355 ml Output Urine Total 650 ml 450 ml 7350 ml # Voids 0 1 7 # Bowel Movements 0 Exam GENERAL: sleepy, in no acute distress, forgetful. HEAD: atraumatic, normocephalic, no bruises. EYES: NEFTALY, EOMI, anicteric, able to fully open and close eyelids SKIN: Skin color normal, turgor normal/decreased. No visible rashes or lesions. EAR, NOSE, MOUTH, THROAT: Lips, oral mucosa, tongue gums, oropharynx are moist , pink. NECK: no jugulo venous distention, supple; ROM normal. RESPIRATORY: Crackles bilaterally, worse on the left. Expiratory wheeze heard on the left, mid-thorax. Good diaphragmatic excursion. CARDIAC: normal S1 and S2; no rubs, murmurs, or gallops; regular rhythm ABDOMEN: Abdomen soft, non-tender. BS normal. No masses or organomegaly. MUSCULOSKELETAL: ROM full, muscles are not tender EXTREMITIES: no pitting edema in lower extremities, no clubbing or skin discoloration. NEURO: Alert, oriented X 3, Cranial nerves II-XII intact, Grossly normal motor function. IVs and Medications Medications Reviewed: Medications were reviewed in detail Lab and Diagnostics Result Diagram: 02/04/1781402/04/17814 X-Rays, CTs and MRIs CT ANGIO CHEST PULMONARY EMBOLISM IMPRESSION: Large area of left perihilar, masslike consolidation presumably pneumonia although recommend short interval followup with repeat radiographs or CT after treatment, to exclude neoplasm. No evidence of pulmonary embolism. Mild cardiomegaly. Dictated by: Duarte Wheatley M.D. on 02/01/2017 at 10:05 MRI BRAIN WITH AND WITHOUT CONTRAST IMPRESSION: Bilateral (T2 hypointense) maxillary sinus disease as detailed above. 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 Scattered bilateral mastoid air cell fluid. This is technically age indeterminate and recommend clinical correlation. No abnormal enhancement. Dictated by: Duarte Wheatley M.D. on 02/03/2017 at 9:24 X-RAY CHEST ONE VIEW, PORTABLE IMPRESSION: Worsening multifocal air space opacities likely pneumonia. Continued radiographic surveillance to resolution is recommended. Dictated by: Edward SILVERMAN Interpreted: Angela Loza MD on 02/04/2017 at 11:19 X-RAY KUB IMPRESSION: Nonspecific bowel gas pattern. If patient's symptoms persist, recommend repeat imaging or CT. 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 Patient was diagnosed with sepsis, acute hypoxic respiratory failure secondary to pneumonia. Hospital day #4 Acute hypoxic respiratory failure secondary to CAP, presenting with sepsis, present on admission. Active. - PNA presenting with peribronchial consolidation and mass-like lesion on CTA of chest - Follow up blood cultures - Viral respiratory PCR panel negative - urine strep and urine Legionella antigens negative - Antibiotic day #4, on Rocephin and Azithromycin for CAP - Supplemental O2 as needed, respiratory therapy following Normocytic normochromic anemia, present on admission, active, stable. -Iron low, sat low, TIBC normal, probably iron deficiency anemia as well as anemia of chronic disease -We will continue to monitor with daily CBC. -Start iron supplementation with ferrous gluconate -patient will need to evaluate the cause of anemia outpatient. Hyperglycemia, present on admission, resolved -hgba1c normal. -blood glucose normalized, will stop correctional Lispro Hypovolemic hyponatremia, present on admission, resolved. -Responded nicely to normal saline. IVF stopped. ?History of CHF - Patient reports a history of CHF, but last echo showed LVEF of 60% with no discernible diastolic dysfunction Chronic pain syndrome - stable - Continue with home medications Hypertension - stable - Hold blood pressure medications for now Chronic problems, present on admission: Hyperlipidemia - stable -Continue with home medications GERD -Continue with home medications Chronic migraines -Continue with home medications -MRI not revealing of any acute pathology in the brain. Note sinusitis. Sinusitis, chronic -Not under control Constipation, secondary to opiates -stable, not under control -KUB not revealing of severe constipation -will add Dulcolax suppository Anxiety and depression -Continue with home medications DVT PROPHYLAXIS: Lovenox sq Disposition: Likely patient will be in the hospital for 2-3 more days as she is evaluated and treated for the above conditions. VTE Prophylaxis: Sub-Q Enoxaparin, SCDs VTE Mechanical Devices: Intermittant Pneumatic CD Resuscitation Status: CPR: Attempt Resuscitation Attending Statement Patient seen and examined with housestaff. Agree with all attached documentation. Melida Jimenez DO February 04, 2017 11:45 Moose Kearns MD February 06, 2017 07:55
--- NOTE | 2017-02-04 14:29 | NUR ---
Pain/Nausea/constipation Pt reports headache at 8/10 today. She has been administered Percocet x1, Imitrex x1 and Roxycodone x1. She reports that she starts to get relief for an hour or so before the pain comes back. Discussed with the pt what medications she has available for pain, and decided on a plan of spacing out pain medications every 3 hours for best coverage. Pt also c/o constant nausea. Reglan given with some relief. Pt offered Zofran but declined stating that Zofran does not work for her. Pt administered Miralax and Sennakot Po for pt's ongoing constipation.
--- NOTE | 2017-02-04 15:37 | NUR ---
Evaluation completed. Please go to "Notes" then click on "Assessments and Notes" (bottom left corner of screen). Then select appropriate discipline tab on top of screen.
[2017-02-04] MEDS ORDERED: Potassium Chloride 20 mEq SR Tablet PO ONE (15:45)
[2017-02-04] MEDS: cefTRIAXone Inj 2,000 MG in Dextrose 5% Minibag Plus 50 ML IV SCH (20:20)
[2017-02-05] VITALS (9 sets, daily range): BP systolic 107–142; BP diastolic 73–79; PULSE 66–82; RESP 16–20; O2SAT 94–99
[2017-02-05 02:46] LABS: BASOPHILS % (AUTO) 0.3 % (0-3); MONOCYTES % (AUTO) 7.8 % (4-12); Mean Corpuscular Hemoglobin 30.4 pg (27.0-35.0); Mean Corpuscular Volume 96.2 fL (81-100); Platelet Count 243 bil/L (150-400)
--- NOTE | 2017-02-05 05:59 | NUR ---
Pain Management: Pt medicated just after midnight for pain/anxiety/nausea. Pt awoken this am with no complaints. Pt stable throughout the night. Will cont. to monitor.
[2017-02-05] MEDS: oxyCODONE-Acetamin 10-325 mg Tablet PO PRN ×2 (06:36→14:32)
[2017-02-05] MEDS: Albuterol-Ipratropium 3 mL Inhalation Solution NEB SCH ×4 (08:12→21:07)
[2017-02-05] MEDS: Polyethylene Glycol (PEG) 17 Gm Powder PO PRN (08:21)
[2017-02-05] MEDS: Senna-Docusate 8.6-50 mg Tablet PO PRN (08:21)
[2017-02-05] MEDS: Pantoprazole 40 mg ER24 Tablet PO SCH ×2 (08:22→20:04)
--- NOTE | 2017-02-05 13:57 | NUR ---
NUTRITION ASSESSMENT: ASSESS: Pt is a 61yo F admitted for pneumonia. She has had persistent nausea and has only been able to tolerate bites of food x4 days. When spoke with pt she seemed a bit distant/confused. Discussed eating bland foods when nauseous and trying to eat smaller more frequent meals. Discussed the importance of eating to help keep her strength up to help aide in healing process. Pt has not had a BM since admit but is receiving bowel meds. PMHX: Asthma, HTN, HLD, GERD, CHF LABS: Reviewed. [place] .48, Glu 104 MEDS: Reviewed. Senna, miralax GI: 0 bm SKIN: 0 major issues CURRENT WTS: 68kg, BMI 27.4kg/m2, admit wt 68.4kg DIET: Heart healthy, PO bites EST. NEEDS: Kcals: 0912-3502 kcal/day (25-30kcal/kg) Pro: 70-80g/day (1.0-1.2g/kg) NUTRITION DIAGNOSIS: 1.) Inadequate oral intake related to persistent nausea as evidence by pt only eating bites x4 days. NUTRITION INTERVENTION: 1.) Discussed foods to eat when nauseous and trying to eat smaller more frequent meals. Discussed higher kcal/pro foods that pt would be willing to try. Encouraged pt to continue to try to eat her meals to help with healing and to keep her strength up. Pt expressed understanding although she seemed a bit out of it. 2.) Will add yogurt on all trays per pt preference. ( she does not like Ensure) MONITOR / EVAL: PO, BM, wt, labs, POC, nutrition status. Will continue to monitor per moderate nutrition risk guidelines
--- NOTE | 2017-02-05 14:25 | PCM.PNMED ---
Subjective Date of Service February 05, 2017 Subjective She is feeling slightly better today. Still with a dry cough but improving. Still dyspneic, but improving. Some abdominal pain and headache. Constipation with no bowel movement for 2 weeks. She has a long history of prolonged constipation. She denies any rectal bleeding or hematuria. No overnight events noted. Exam Vital Signs Vital Sign - Last Date Time Temp Pulse Resp B/P Pulse Ox O2 Delivery O2 Flow Rate FiO2 02/05/17 13:34 Nasal Cannula 3.00 02/05/17 13:05 68 18 95 02/05/17 08:16 37.0 107/73 Intake and Output 02/04/17 02/04/17 02/05/17 Cumulative From/Thru 15:00 23:00 07:00 01/31/17 22:39 - 02/05/17 06:10 Intake Total 300 ml 302 ml 7797 ml Output Total 300 ml 0 ml 7650 ml Balance 0 ml 302 ml 147 ml Intake Oral 300 ml 200 ml 3340 ml IV Total 102 ml 4457 ml Output Urine Total 300 ml 0 ml 7650 ml # Voids 7 # Bowel Movements 0 0 0 Exam Alert and oriented -3, no distress. Fluent speech, slow to speak and answer. Flat affect. She is still on oxygen nasal cannula. Anicteric sclera. Lungs are clear with normal rate and effort Heart is regular without murmur gallop or rub Abdomen soft nontender, flat Extremities are free of edema. Skin is free of rash or lesions. IVs and Medications Medications Reviewed: Medications were reviewed in detail Lab and Diagnostics Result Diagram: 02/05/1720902/05/17209 X-Rays, CTs and MRIs CT ANGIO CHEST PULMONARY EMBOLISM IMPRESSION: Large area of left perihilar, masslike consolidation presumably pneumonia although recommend short interval followup with repeat radiographs or CT after treatment, to exclude neoplasm. No evidence of pulmonary embolism. Mild cardiomegaly. Dictated by: Duarte Wheatley M.D. on 02/01/2017 at 10:05 MRI BRAIN WITH AND WITHOUT CONTRAST IMPRESSION: Bilateral (T2 hypointense) maxillary sinus disease as detailed above. 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 Scattered bilateral mastoid air cell fluid. This is technically age indeterminate and recommend clinical correlation. No abnormal enhancement. Dictated by: Duarte Wheatley M.D. on 02/03/2017 at 9:24 X-RAY CHEST ONE VIEW, PORTABLE IMPRESSION: Worsening multifocal air space opacities likely pneumonia. Continued radiographic surveillance to resolution is recommended. Dictated by: Edward SILVERMAN Interpreted: Angela Loza MD on 02/04/2017 at 11:19 X-RAY KUB IMPRESSION: Nonspecific bowel gas pattern. If patient's symptoms persist, recommend repeat imaging or CT. 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 Patient was diagnosed with sepsis, acute hypoxic respiratory failure secondary to pneumonia. Hospital day #4 Acute hypoxic respiratory failure secondary to CAP, presenting with sepsis, present on admission. Active and improving. - PNA presenting with peribronchial consolidation and mass-like lesion on CTA of chest - Follow up blood cultures - Viral respiratory PCR panel negative - urine strep and urine Legionella antigens negative - Antibiotic day #5, on Rocephin and Azithromycin for CAP him in her changes to medications. - Supplemental O2 as needed, respiratory therapy following. Her demand is improving. Normocytic normochromic anemia, present on admission, active, stable. -Iron low, sat low, TIBC normal, probably iron deficiency anemia as well as anemia of chronic disease -We will continue to monitor with daily CBC. -Start iron supplementation with ferrous gluconate -patient will need to evaluate the cause of anemia outpatient. Hyperglycemia, present on admission, resolved -hgba1c normal. -blood glucose normalized, will stop correctional Lispro Hypovolemic hyponatremia, present on admission, resolved. -Responded nicely to normal saline. IVF stopped. Possible History of chronic diastolic CHF - Patient reports a history of CHF, but last echo showed LVEF of 60% with no discernible diastolic dysfunction Chronic pain syndrome , POA and active - stable - Continue with home medications Essential Hypertension, POA and stable - stable - Hold blood pressure medications for now Chronic problems, present on admission: Hyperlipidemia - stable -Continue with home medications GERD -Continue with home medications Chronic migraines -Continue with home medications -MRI not revealing of any acute pathology in the brain. Note sinusitis. Sinusitis, chronic -Not under control Constipation, secondary to opiates -stable, not under control -KUB not revealing of severe constipation -will add Dulcolax suppository We will add one time fleets enema today. Anxiety and depression -Continue with home medications DVT PROPHYLAXIS: Lovenox sq Disposition: Likely patient will be in the hospital for 2-3 more days as she is evaluated and treated for the above conditions. VTE Prophylaxis: Sub-Q Enoxaparin, SCDs VTE Mechanical Devices: Intermittant Pneumatic CD Resuscitation Status: CPR: Attempt Resuscitation Moose Kearns MD February 05, 2017 14:25 Moose Kearns MD February 05, 2017 14:25
--- NOTE | 2017-02-05 15:40 | NUR ---
Transfer of Care Patient transferred up to [facility] to room 3029 in a stable condition -- report given to Breann Alexander. Addendum: 02/05/17 at 1924 by BREANN ALEXANDER RN Arrived to floor approx [address], , with all belongings via w/c. Meds placed in drawer.
[2017-02-05] MEDS: cefTRIAXone Inj 2,000 MG in Dextrose 5% Minibag Plus 50 ML IV SCH (20:06)
[2017-02-05] MEDS ORDERED: 0.9% Sodium Chloride 250 ML ONE (20:08)
[2017-02-06] VITALS (7 sets, daily range): BP systolic 96–113; BP diastolic 65–72; PULSE 66–91; RESP 16–18; O2SAT 95–96
[2017-02-06] MEDS: oxyCODONE-Acetamin 10-325 mg Tablet PO PRN ×4 (01:30→21:04)
[2017-02-06] MEDS: Albuterol-Ipratropium 3 mL Inhalation Solution NEB SCH ×4 (08:06→19:33)
[2017-02-06] MEDS: Pantoprazole 40 mg ER24 Tablet PO SCH ×2 (08:40→20:01)
--- NOTE | 2017-02-06 10:31 | NUR ---
Oxygen Pt now on 1L oxygen via NC from 3L, sating at 94-95%. Denies CP, discomfort. Neb tx appear to be effective in bringing phlegm up and ease of coughing. Gomez at bedside, pt encouraged to use it. Will continue to monitor. Addendum: 02/06/17 at 1748 by RAUL POST RN MATERIAL MAN worked with pt and noted saturation dipping into 88% on 1L, recommended upping oxygen to 2L with ambulation. Pt now resting on 1L, appears comfortable. Is asleep.
[2017-02-06] MEDS: cefTRIAXone Inj 2,000 MG in Dextrose 5% Minibag Plus 50 ML IV SCH (20:01)
--- NOTE | 2017-02-07 00:18 | PCM.PNMED ---
Subjective Date of Service February 07, 2017 Subjective The patient is feeling a little bit better and has no new complaints. She remains somewhat sedated and somnolent. Exam Vital Signs Vital Sign - Last Date Time Temp Pulse Resp B/P Pulse Ox O2 Delivery O2 Flow Rate FiO2 02/06/17 21:42 36.9 66 16 113/65 96 Nasal Cannula 0.50 Intake and Output 02/06/17 02/06/17 02/07/17 Cumulative From/Thru 15:00 23:00 07:00 01/31/17 22:39 - 02/06/17 19:20 Intake Total 500 ml 8697 ml Output Total 600 ml 8750 ml Balance -100 ml -53 ml Intake Oral 500 ml 4240 ml IV Total 4457 ml Output Urine Total 600 ml 8750 ml # Voids 7 # Bowel Movements 1 1 Exam General: Patient appears sedated and somnolent due to narcotics. She is easily arousable and conversive. Otherwise she appears quite comfortable. HEENT: Head is atraumatic and normocephalic. Eyes: Pupils are equally round and reactive to light and accommodation. Extraocular muscles are intact. Sclera are white, anicteric. Subconjunctival mucosa is pink. Ears and nose are unremarkable. Oropharynx: There is no mucosal lesions, there is no thrush, there is no pharyngitis. Neck: Is supple, there are no nodes, or masses or tenderness. Chest: Is significant for some bibasilar adventitious sounds. There is some scattered wheezes. Heart: Rate, rhythm is regular. There is no murmur, rub or gallop. Abdomen: Good bowel sounds are present. Abdomen is soft, nontender, no organomegaly or masses were appreciated. Extremities: Are symmetrical and well perfused. There is no edema, there is no cellulitis, no rash. Neurologic: There are no focal neurological deficits. Cranial nerves II through XII are intact. There are no sensory or motor deficits. Psychiatric: Patients mood is calm and shows no sign of agitation. Genital: Deferred Rectal: Deferred Lab and Diagnostics Result Diagram: 02/05/1720902/05/17209 X-Rays, CTs and MRIs CT ANGIO CHEST PULMONARY EMBOLISM IMPRESSION: Large area of left perihilar, masslike consolidation presumably pneumonia although recommend short interval followup with repeat radiographs or CT after treatment, to exclude neoplasm. No evidence of pulmonary embolism. Mild cardiomegaly. Dictated by: Duarte Wheatley M.D. on 02/01/2017 at 10:05 MRI BRAIN WITH AND WITHOUT CONTRAST IMPRESSION: Bilateral (T2 hypointense) maxillary sinus disease as detailed above. 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 Scattered bilateral mastoid air cell fluid. This is technically age indeterminate and recommend clinical correlation. No abnormal enhancement. Dictated by: Duarte Wheatley M.D. on 02/03/2017 at 9:24 X-RAY CHEST ONE VIEW, PORTABLE IMPRESSION: Worsening multifocal air space opacities likely pneumonia. Continued radiographic surveillance to resolution is recommended. Dictated by: Edward SILVERMAN Interpreted: Angela Loza MD on 02/04/2017 at 11:19 X-RAY KUB IMPRESSION: Nonspecific bowel gas pattern. If patient's symptoms persist, recommend repeat imaging or CT. 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 Patient was diagnosed with sepsis, acute hypoxic respiratory failure secondary to pneumonia. Hospital day #5 Acute hypoxic respiratory failure secondary to CAP, presenting with sepsis, present on admission. Active and improving. - PNA presenting with peribronchial consolidation and mass-like lesion on CTA of chest - Follow up blood cultures - Viral respiratory PCR panel negative - urine strep and urine Legionella antigens negative - Antibiotic day #5, on Rocephin and Azithromycin for CAP. - Supplemental O2 as needed, respiratory therapy following. Her demand is improving. - We will repeat chest x-ray in a.m. and consider repeat CT scan of the chest. Normocytic normochromic anemia, present on admission, active, stable. -Iron low, sat low, TIBC normal, probably iron deficiency anemia as well as anemia of chronic disease -We will continue to monitor with daily CBC. -Start iron supplementation with ferrous gluconate -The patient will need to evaluate the cause of anemia outpatient. Hyperglycemia, present on admission, resolved -The hgba1c is normal. -The blood glucose normalized, will stop correctional Lispro Hypovolemic hyponatremia, present on admission, resolved. -Responded nicely to normal saline. IVF stopped. Possible History of chronic diastolic CHF - Patient reports a history of CHF, but last echo showed LVEF of 60% with no discernible diastolic dysfunction Chronic pain syndrome , POA and active - Currently stable - Continue with home medications Essential Hypertension, POA and stable - Currently stable - Hold blood pressure medications for now Chronic problems, present on admission: Hyperlipidemia - stable -Continue with home medications GERD -Continue with home medications Chronic migraines -Continue with home medications -MRI not revealing of any acute pathology in the brain. Note sinusitis. Sinusitis, chronic -Not under control Constipation, secondary to opiates -Currently stable, not under control -KUB not revealing of severe constipation -We will add Dulcolax suppository A one time fleets enema was given yesterday. Anxiety and depression -Continue with home medications DVT PROPHYLAXIS: Lovenox sq Disposition: Likely patient will be in the hospital for 2-3 more days as she is evaluated and treated for the above conditions. Pain Evaluation: Adequate Pain Control VTE Prophylaxis: Sub-Q Enoxaparin, SCDs VTE Mechanical Devices: Intermittant Pneumatic CD Resuscitation Status: CPR: Attempt Resuscitation Harwood,Oswaldo Christopher MD February 07, 2017 00:18
[2017-02-07] MEDS: oxyCODONE-Acetamin 10-325 mg Tablet PO PRN ×4 (04:21→22:33)
[2017-02-07 05:11] VITALS: BP 102/66; PULSE 72; RESP 16; O2SAT 93
--- NOTE | 2017-02-07 06:12 | NUR ---
Activity/Oxygen Needs P: Altered gait/balance. Pt desat to 87% on 0.5 L. I: 1 person assist in the room. Allow to stand at side of bed to gain balance. Assist with undergarments. Increased O2 to 2L. E: Pt continues to shuffle feet while walking. Swaying side to side on crutches. Pt O2 sat. 92%.
[2017-02-07 06:55] LABS: BASOPHILS % (AUTO) 0.8 % (0-3); EOSINOPHILS % (AUTO) 4.4 % (0-5); Mean Corpuscular Hemoglobin 30.9 pg (27.0-35.0); Mean Corpuscular Volume 96.9 fL (81-100); NEUTROPHILS % (AUTO) 43.3 % (40-74); Platelet Count 289 bil/L (150-400)
[2017-02-07 07:17] LABS: Magnesium 2.5 mg/dL (1.6-2.6)
[2017-02-07 07:25] VITALS: PULSE 66; RESP 16; O2SAT 99
[2017-02-07] MEDS: Albuterol-Ipratropium 3 mL Inhalation Solution NEB SCH ×4 (07:25→21:00)
[2017-02-07 07:53] LABS: ERYTHROCYTE SEDIMENTATION RATE 40 mm/hr (0-40)
[2017-02-07] MEDS: Pantoprazole 40 mg ER24 Tablet PO SCH ×2 (08:10→20:33)
--- NOTE | 2017-02-07 10:20 | DRSVH ---
PROCEDURE: X-RAY CHEST, TWO VIEWS ([id number]) INDICATIONS: Follow up for Pneumonia TECHNIQUE: 2 views of the chest were acquired. COMPARISON: [facility], CR, XR CHEST 1VW (PORTABLE), 02/04/2017, 10:04. FINDINGS: Surgical changes and devices: None. Lungs and pleura: Interval decrease in airspace opacity within the right lung base otherwise persiste nt opacity within the left upper lobe and left lung base which has not significantly changed. Mediastinum: Mediastinal contours are normal. Heart size is normal. Bones and chest wall: No suspicious bony abnormalities. Soft tissues appear unremarkable. IMPRESSION: Decrease in airspace opacity involving the right lung base and persistent opacity within the left upper and lower lobes which may be related to pneumonia. Continued radiographic surveillanc e to resolution is recommended. Dictated by: Edward Kwan [facility] Interpreted: Duarte Wheatley MD on 02/07/2017 at 10:18 Transcribed by: ELVIN on 02/07/2017 at 10:20 Approved by: Duarte Wheatley M.D. on 02/07/2017 at 14:28
--- NOTE | 2017-02-07 12:28 | NUR ---
Social Work: Readiness for d/c Data: Pt is on day 6 of hospitalization. EMR reviewed. Pt discussed in rounds. MD states pt likely ready for d/c either today or tomorrow. PT worked with pt, recommending HH. FIREWORKS DISPLAY SPECIALIST met with pt, explained and offered HH. HH choice list given. Pt states she wants to talk with her about HH and will talk to him this afternoon. FIREWORKS DISPLAY SPECIALIST to follow up regarding if pt wants HH or not this afternoon. Plan: Pt will d/c home via POV when medically stable, possibly today per . FIREWORKS DISPLAY SPECIALIST to follow up with pt regarding if she wants HH. FIREWORKS DISPLAY SPECIALIST to follow. DONELL Shin
--- NOTE | 2017-02-07 13:19 | NUR ---
Constipation Pt continues to have constipation. Last BM reported 2 weeks ago. Pt states this is "normal" for her. Pt taking chronic pain meds. Educated on increasing fluids to assist with BM. Pt given suppository dulcolax and oral colace. Pt denies abdominal pain, nausea/vomiting. Will continue to offer meds to assist with BM. Call light within reach.
--- NOTE | 2017-02-07 15:05 | NUR ---
Poor appetite Patient continues to have a poor appetite eating only bites of meals - 25%. Patient states she has poor appetite and nausea which causes poor appetite.
--- NOTE | 2017-02-07 16:22 | NUR ---
Titrating O2 Patient was on 2L supplemental oxygen via nasal cannula. Patient was titrated down to 1L supplemental oxygen with saturations at 96%. Will continue to monitor and titrate as appropriate.
--- NOTE | 2017-02-07 16:29 | NUR ---
Social Work: Continued d/c planning Data: Pt is on day 6 of hospitalization. LOCKER ROOM SUPERVISOR followed up with pt regarding HH choice. Pt states she does not want it. LOCKER ROOM SUPERVISOR referred her to LOCKER ROOM SUPERVISOR phone number if she changes her mind. LOCKER ROOM SUPERVISOR will continue to follow. DONELL Shin
[2017-02-07 16:37] VITALS: BP 102/66; PULSE 66; RESP 18; O2SAT 97
[2017-02-07 17:00] VITALS: PULSE 65; RESP 16; O2SAT 96
[2017-02-07 19:39] VITALS: BP 93/64; PULSE 74; RESP 18; O2SAT 94
[2017-02-07] MEDS: cefTRIAXone Inj 2,000 MG in Dextrose 5% Minibag Plus 50 ML IV SCH (20:33)
[2017-02-08] VITALS (7 sets, daily range): BP systolic 94–96; BP diastolic 63–65; PULSE 62–85; RESP 16–18; O2SAT 94–96
--- NOTE | 2017-02-08 00:33 | PCM.PNMED ---
Subjective Date of Service February 07, 2017 Subjective Patient feels about the same. She has a little slight bit more energy than yesterday but not much. Patient has no other new complaints. Exam Vital Signs Vital Sign - Last Date Time Temp Pulse Resp B/P Pulse Ox O2 Delivery O2 Flow Rate FiO2 02/07/17 19:39 36.8 74 18 93/64 94 Nasal Cannula 2.00 Intake and Output 02/07/17 02/07/17 02/08/17 Cumulative From/Thru 15:00 23:00 07:00 01/31/17 22:39 - 02/07/17 17:54 Intake Total 375 ml 210 ml 9282 ml Output Total 300 ml 150 ml 9200 ml Balance 75 ml 60 ml 82 ml Intake Oral 375 ml 200 ml 4815 ml IV Total 10 ml 4467 ml Output Urine Total 300 ml 150 ml 9200 ml # Voids 1 8 # Bowel Movements 0 1 2 Exam General: Patient appears to be more alert and responsive today. She is brighter. She is in no apparent distress and has no new complaints. HEENT: Head is atraumatic and normocephalic. Eyes: Pupils are equally round and reactive to light and accommodation. Extraocular muscles are intact. Sclera are white, anicteric. Subconjunctival mucosa is pink. Ears and nose are unremarkable. Oropharynx: There is no mucosal lesions, there is no thrush, there is no pharyngitis. Neck: Is supple, there are no nodes, or masses or tenderness. Chest: Is significant for some bibasilar adventitious sounds. There is some scattered wheezes. However, breath sounds are clearer today Heart: Rate, rhythm is regular. There is no murmur, rub or gallop. Abdomen: Good bowel sounds are present. Abdomen is soft, nontender, no organomegaly or masses were appreciated. Extremities: Are symmetrical and well perfused. There is no edema, there is no cellulitis, no rash. Neurologic: There are no focal neurological deficits. Cranial nerves II through XII are intact. There are no sensory or motor deficits. Psychiatric: Patients mood is calm and shows no sign of agitation. Genital: Deferred Rectal: Deferred Lab and Diagnostics Result Diagram: 02/07/1762202/07/17622 X-Rays, CTs and MRIs CT ANGIO CHEST PULMONARY EMBOLISM IMPRESSION: Large area of left perihilar, masslike consolidation presumably pneumonia although recommend short interval followup with repeat radiographs or CT after treatment, to exclude neoplasm. No evidence of pulmonary embolism. Mild cardiomegaly. Dictated by: Duarte Wheatley M.D. on 02/01/2017 at 10:05 MRI BRAIN WITH AND WITHOUT CONTRAST IMPRESSION: Bilateral (T2 hypointense) maxillary sinus disease as detailed above. 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 Scattered bilateral mastoid air cell fluid. This is technically age indeterminate and recommend clinical correlation. No abnormal enhancement. Dictated by: Duarte Wheatley M.D. on 02/03/2017 at 9:24 X-RAY CHEST ONE VIEW, PORTABLE IMPRESSION: Worsening multifocal air space opacities likely pneumonia. Continued radiographic surveillance to resolution is recommended. Dictated by: Edward SILVERMAN Interpreted: Angela Loza MD on 02/04/2017 at 11:19 X-RAY KUB IMPRESSION: Nonspecific bowel gas pattern. If patient's symptoms persist, recommend repeat imaging or CT. 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 Patient was diagnosed with sepsis, acute hypoxic respiratory failure secondary to pneumonia. Hospital day #6. Acute hypoxic respiratory failure secondary to CAP, presenting with sepsis, present on admission. Active and improving. - PNA presenting with peribronchial consolidation and mass-like lesion on CTA of chest - Follow up blood cultures - Viral respiratory PCR panel negative - urine strep and urine Legionella antigens negative - Antibiotic day #6, on Rocephin and Azithromycin for CAP. - Supplemental O2 as needed, respiratory therapy following. Her demand is improving. - The repeat chest x-ray shows no significant change after a week of antibiotic therapy. Possibilities include the x-ray findings leg and behind her clinical response. However, there is a question of a mass in the left hilar area. Therefore we will check CT scan of the chest in a.m.. The patient and her are agreeable with this plan. Normocytic normochromic anemia, present on admission, active, stable. -Iron low, sat low, TIBC normal, probably iron deficiency anemia as well as anemia of chronic disease -We will continue to monitor with daily CBC. -Start iron supplementation with ferrous gluconate -The patient will need to evaluate the cause of anemia outpatient. Hyperglycemia, present on admission, resolved -The hgba1c is normal. -The blood glucose normalized, will stop correctional Lispro Hypovolemic hyponatremia, present on admission, resolved. -Responded nicely to normal saline. IVF stopped. Possible History of chronic diastolic CHF - Patient reports a history of CHF, but last echo showed LVEF of 60% with no discernible diastolic dysfunction Chronic pain syndrome , POA and active - Currently stable - Continue with home medications Essential Hypertension, POA and stable - Currently stable - Hold blood pressure medications for now Chronic problems, present on admission: Hyperlipidemia - stable -Continue with home medications GERD -Continue with home medications Chronic migraines -Continue with home medications -MRI not revealing of any acute pathology in the brain. Note sinusitis. Sinusitis, chronic -Not under control Constipation, secondary to opiates -Currently stable, not under control -KUB not revealing of severe constipation -We will add Dulcolax suppository A one time fleets enema was given yesterday. Anxiety and depression -Continue with home medications DVT PROPHYLAXIS: Lovenox sq Disposition: Likely patient will be in the hospital for 2-3 more days as she is evaluated and treated for the above conditions. Pain Evaluation: Adequate Pain Control VTE Prophylaxis: Sub-Q Enoxaparin, SCDs VTE Mechanical Devices: Intermittant Pneumatic CD Resuscitation Status: CPR: Attempt Resuscitation MelvinOswaldo field MD February 08, 2017 00:33
[2017-02-08] MEDS: oxyCODONE-Acetamin 10-325 mg Tablet PO PRN ×4 (05:38→23:07)
[2017-02-08] MEDS: Albuterol-Ipratropium 3 mL Inhalation Solution NEB SCH ×4 (08:09→20:41)
[2017-02-08] MEDS: Pantoprazole 40 mg ER24 Tablet PO SCH ×2 (08:11→20:11)
--- NOTE | 2017-02-08 09:00 | NUR ---
BALTAZAR signed. DONELL Villeda
--- NOTE | 2017-02-08 10:48 | DRSVH ---
PROCEDURE: CT CHEST WITH CONTRAST ([id number]) INDICATIONS: possible left hilar mass on chest x-ray TECHNIQUE: After the administration of intravenous contrast, 5 mm thick sections acquired from the pulmonary api gene to the posterior costophrenic angles. 7 mm thick coronal and sagittal MIP reformats were acquire d. For radiation dose reduction, the following was used: automated exposure control, adjustment of mA and/or kV according to patient size. COMPARISON: [facility], CT, CT ANGIO CHEST PE, 02/01/2017, 1:56. [facility] , CR, XR CHEST 2VW, 01/31/2017, 17:42. [facility], CR, XR CHEST 2VW, 11/02/2016, 20:35. [facility], CR, XR CHEST 2VW, 02/07/2017, 8:45. FINDINGS: Image quality: Excellent. Lungs and pleura: Is identified on the 02/01/17 CT chest examination, there is an appearance of left p erihilar consolidation with groundglass like opacities. There has been minimal interval improvement c ompared to prior exam. This corresponds to the chest x-ray abnormality of 02/07/17. Subcentimeter area s of groundglass like opacity are present within the right lower lobe, new compared to prior exam. De pendent changes are present within the left base. Mediastinum: Heart size is normal. No pericardial effusion. No mediastinal or hilar adenopathy by size criteria. Thoracic aorta and central pulmonary arteries are normal in size. Esophagus is greg l in caliber. No hiatal hernia. Bones and chest wall: No suspicious bony lesions. No vertebral body compression fractures. No axil elio or supraclavicular adenopathy by size criteria. Thyroid gland is unremarkable. Abdomen: Visualized upper abdominal solid organs appear normal. Upper abdominal bowel loops are nor mal in caliber. IMPRESSION: 1. Persistent appearance of left perihilar consolidation mass or groundglass opacities as identified on the 02/01/17 exam, demonstrating minimal interval improvement. Small sub-centimeters groundglass op acity are present at the right base, appearing new. Overall appearance is suggestive of infection or inflammation. Recommend interval followup after appropriate therapy to document resolution and exclud e presence of underlying mass lesion. Dictated by: Esperanza Willams M.D. on 02/08/2017 at 10:43 Approved by: Esperanza Willams M.D. on 02/08/2017 at 10:46
--- NOTE | 2017-02-08 12:00 | NUR ---
Social Work-readiness for discharge: data:EMR reviewed. Pt is on day 7 of hospitalization for multilobar pneumonia per H&P. Pt is not medically stable anticipate 1-2 more days. PT has seen pt and recommended home with HH services. SW followed up with pt again at bedside, SW role explained. Pt states she had a chance to speak with her and they do not feel like HH will be needed at discharge. SW went over benefits of HH services and pt continues to decline. Pt states she has lots of family support at home.SW explained that SW will follow up again prior to discharge. Pt remains on oxygen in room. Anticipate pt to be on oral abx at discharge. Pt's family to provide transport home. No anticipated discharge needs. SW will continue to follow if needs arise. Assessment:pt who is independent at baseline. Plan:Pt to discharge home when medically stable via POV. Pt declining HH Services. No anticipated discharge needs. SW will continue to follow if needs arise. DONELL Villeda
--- NOTE | 2017-02-08 15:34 | NUR ---
No male assistance to Bathroom Patient worked with PT. Patient had to use restroom at end of PT session. PT was a male and assisted patient to BSC and with lowering her underpants while nurse was in room. When PT left room, patient mentioned to nurse she does not want any male staff to assist her with lowering her underwear. Patient did not mention anything at the time to the male PT or nurse that she was uncomfortable with male staff assisting her with toileting needs. Nurse notified charge nurse of this and mentioned it to the male PT.
[2017-02-08] MEDS: cefTRIAXone Inj 2,000 MG in Dextrose 5% Minibag Plus 50 ML IV SCH (20:12)
--- NOTE | 2017-02-08 23:32 | PCM.PNMED ---
Subjective Date of Service February 08, 2017 Subjective The patient feels a little bit better. She has no new complaints. Exam Vital Signs Vital Sign - Last Date Time Temp Pulse Resp B/P Pulse Ox O2 Delivery O2 Flow Rate FiO2 02/08/17 21:45 36.7 85 18 95/65 94 Room Air 02/08/17 12:48 1.00 Intake and Output 02/07/17 02/07/17 02/08/17 Cumulative From/Thru 15:00 23:00 07:00 01/31/17 22:39 - 02/08/17 06:10 Intake Total 375 ml 210 ml 318 ml 9600 ml Output Total 300 ml 150 ml 600 ml 9800 ml Balance 75 ml 60 ml -282 ml -200 ml Intake Oral 375 ml 200 ml 318 ml 5133 ml IV Total 10 ml 4467 ml Output Urine Total 300 ml 150 ml 600 ml 9800 ml # Voids 1 8 # Bowel Movements 0 1 2 Exam General: Patient appears to be more alert and responsive again today. She is brighter. She is in no apparent distress and has no new complaints. HEENT: Head is atraumatic and normocephalic. Eyes: Pupils are equally round and reactive to light and accommodation. Extraocular muscles are intact. Sclera are white, anicteric. Subconjunctival mucosa is pink. Ears and nose are unremarkable. Oropharynx: There is no mucosal lesions, there is no thrush, there is no pharyngitis. Neck: Is supple, there are no nodes, or masses or tenderness. Chest: The patient's breath sounds are clearer today. However, there still are significant crackles in the left lung. Heart: Rate, rhythm is regular. There is no murmur, rub or gallop. Abdomen: Good bowel sounds are present. Abdomen is soft, nontender, no organomegaly or masses were appreciated. Extremities: Are symmetrical and well perfused. There is no edema, there is no cellulitis, no rash. Neurologic: There are no focal neurological deficits. Cranial nerves II through XII are intact. There are no sensory or motor deficits. Psychiatric: Patients mood is calm and shows no sign of agitation. Genital: Deferred Rectal: Deferred Lab and Diagnostics Result Diagram: 02/07/1762202/07/17622 X-Rays, CTs and MRIs CT ANGIO CHEST PULMONARY EMBOLISM IMPRESSION: Large area of left perihilar, masslike consolidation presumably pneumonia although recommend short interval followup with repeat radiographs or CT after treatment, to exclude neoplasm. No evidence of pulmonary embolism. Mild cardiomegaly. Dictated by: Duarte Wheatley M.D. on 02/01/2017 at 10:05 MRI BRAIN WITH AND WITHOUT CONTRAST IMPRESSION: Bilateral (T2 hypointense) maxillary sinus disease as detailed above. 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 Scattered bilateral mastoid air cell fluid. This is technically age indeterminate and recommend clinical correlation. No abnormal enhancement. Dictated by: Duarte Wheatley M.D. on 02/03/2017 at 9:24 X-RAY CHEST ONE VIEW, PORTABLE IMPRESSION: Worsening multifocal air space opacities likely pneumonia. Continued radiographic surveillance to resolution is recommended. Dictated by: Edward SILVERMAN Interpreted: Angela Loza MD on 02/04/2017 at 11:19 X-RAY KUB IMPRESSION: Nonspecific bowel gas pattern. If patient's symptoms persist, recommend repeat imaging or CT. Dictated by: Edward SILVERMAN Interpreted: Angela Loza MD on 02/04/2017 at 11:22 PROCEDURE: CT CHEST WITH CONTRAST ([id number]) INDICATIONS: possible left hilar mass on chest x-ray TECHNIQUE: After the administration of intravenous contrast, 5 mm thick sections acquired from the pulmonary apices to the posterior costophrenic angles. 7 mm thick coronal and sagittal MIP reformats were acquired. For radiation dose reduction , the following was used: automated exposure control, adjustment of mA and/or kV according to patient size. COMPARISON: [facility], CT, CT ANGIO CHEST PE, 02/01/2017, 1:56. [facility], CR, XR CHEST 2VW, 01/31/2017, 17:42. [facility], CR, XR CHEST 2VW, 11/02/2016, 20:35. [facility], CR, XR CHEST 2VW, 02/07/2017, 8:45. FINDINGS: Image quality: Excellent. Lungs and pleura: Is identified on the 02/01/17 CT chest examination, there is an appearance of left perihilar consolidation with groundglass like opacities. There has been minimal interval improvement compared to prior exam. This corresponds to the chest x-ray abnormality of 02/07/17. Subcentimeter areas of groundglass like opacity are present within the right lower lobe, new compared to prior exam. Dependent changes are present within the left base. Mediastinum: Heart size is normal. No pericardial effusion. No mediastinal or hilar adenopathy by size criteria. Thoracic aorta and central pulmonary arteries are normal in size. Esophagus is normal in caliber. No hiatal hernia. Bones and chest wall: No suspicious bony lesions. No vertebral body compression fractures. No axillary or supraclavicular adenopathy by size criteria. Thyroid gland is unremarkable. Abdomen: Visualized upper abdominal solid organs appear normal. Upper abdominal bowel loops are normal in caliber. IMPRESSION: 1. Persistent appearance of left perihilar consolidation mass or groundglass opacities as identified on the 02/01/17 exam, demonstrating minimal interval improvement. Small sub-centimeters groundglass opacity are present at the right base, appearing new. Overall appearance is suggestive of infection or inflammation. Recommend interval followup after appropriate therapy to document resolution and exclude presence of underlying mass lesion. Dictated by: Esperanza Willams M.D. on 02/08/2017 at 10:43 Approved by: Esperanza Willams M.D. 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 Patient was diagnosed with sepsis, acute hypoxic respiratory failure secondary to pneumonia. Hospital day #7. Acute hypoxic respiratory failure secondary to CAP, presenting with sepsis, present on admission. Active and improving very slowly. - The patient's oxygen requirements appear to be improving. Patient is not on oxygen at home. - Pneumonia presenting with peribronchial consolidation and mass-like lesion on CTA of chest - Follow up blood cultures are negative - Viral respiratory PCR panel negative - The urine strep and urine Legionella antigens negative - Antibiotic day #7, on Rocephin and Azithromycin for CAP. - Supplemental O2 as needed, respiratory therapy following. Her demand is improving. - The repeat chest x-ray shows no significant change after a week of antibiotic therapy. Possibilities include the x-ray findings lagging and behind her clinical response. However, there is a question of a mass in the left hilar area. Therefore we checked a CT scan of the chest. A repeat CT of the chest showed minimal improvement from the CT performed 1 week ago. As patient is making some improvements this could be simply the radiological findings lagging behind the patient's clinical response. Normocytic normochromic anemia, present on admission, active, stable. -Iron low, sat low, TIBC normal, probably iron deficiency anemia as well as anemia of chronic disease -We will continue to monitor with daily CBC. -We will continue iron supplementation with ferrous gluconate Hyperglycemia, present on admission, resolved -The hgba1c is normal. -The blood glucose normalized, will stop correctional Lispro Hypovolemic hyponatremia, present on admission, resolved. -Responded nicely to normal saline. IVF stopped. Possible History of chronic diastolic CHF - Patient reports a history of CHF, but last echo showed LVEF of 60% with no discernible diastolic dysfunction Chronic pain syndrome , POA and active - Currently stable - Continue with home medications Essential Hypertension, POA and stable - Currently stable - Hold blood pressure medications for now Chronic problems, present on admission: Hyperlipidemia - stable -Continue with home medications GERD -Continue with home medications Chronic migraines -Continue with home medications -MRI not revealing of any acute pathology in the brain. Note sinusitis. Sinusitis, chronic -Not under control Constipation, secondary to opiates -Currently stable, not under control -KUB not revealing of severe constipation -We will add Dulcolax suppository A one time fleets enema was given yesterday. Anxiety and depression -Continue with home medications DVT PROPHYLAXIS: Lovenox sq Disposition: Likely patient will be in the hospital for 2 more days as she is evaluated and treated for the above conditions. Pain Evaluation: Adequate Pain Control VTE Prophylaxis: Sub-Q Enoxaparin, SCDs VTE Mechanical Devices: Intermittant Pneumatic CD Resuscitation Status: CPR: Attempt Resuscitation Oswaldo Turner MD February 08, 2017 23:32
[2017-02-09] VITALS (9 sets, daily range): BP systolic 91–101; BP diastolic 62–67; PULSE 65–123; RESP 16–18; O2SAT 91–97
[2017-02-09] MEDS: oxyCODONE-Acetamin 10-325 mg Tablet PO PRN ×4 (05:30→23:46)
[2017-02-09] MEDS: Pantoprazole 40 mg ER24 Tablet PO SCH ×2 (07:46→19:59)
[2017-02-09 07:53] LABS: BASOPHILS % (AUTO) 0.6 % (0-3); EOSINOPHILS % (AUTO) 4.1 % (0-5); MONOCYTES % (AUTO) 7.3 % (4-12); Mean Corpuscular Hemoglobin 30.8 pg (27.0-35.0); Mean Corpuscular Volume 97.5 fL (81-100); NEUTROPHILS % (AUTO) 40.7 % (40-74); Platelet Count 294 bil/L (150-400)
[2017-02-09 08:32] LABS: Magnesium 2.3 mg/dL (1.6-2.6)
[2017-02-09] MEDS: Albuterol-Ipratropium 3 mL Inhalation Solution NEB SCH ×4 (09:58→20:41)
--- NOTE | 2017-02-09 12:37 | NUR ---
Supplemental oxygen Patient was on RA this morning with saturations at 92% on 2L. As patient became more awake, saturations were at 97% and patient was weaned down and then removed from supplemental oxygen with saturations between 93-94% on RA. Patient started falling asleep near lunch time and continuous pulse ox alarmed. Patient saturations dropped to 86-87% on RA while sleeping. Patient placed on 1L supplemental oxygen with saturations at 92-93%. Will titrate when patient wakes up more.
--- NOTE | 2017-02-09 16:30 | NUR ---
Transfer of care from Blanca Ford RN Pt c/o GREEN 03/01, not due for pain medications yet-refused tylenol. On 1L of O2, sating in low 90s. Appears comfortable. States last BM was yesterday. Will continue to monitor.
[2017-02-09] MEDS: cefTRIAXone Inj 2,000 MG in Dextrose 5% Minibag Plus 50 ML IV SCH (19:59)
--- NOTE | 2017-02-09 23:42 | PCM.PNMED ---
Subjective Date of Service February 09, 2017 Subjective Patient is continuing to feel a little bit better every day. She does not feel well enough to go home today. She is able to ambulate with crutches to the bathroom. Exam Vital Signs Vital Sign - Last Date Time Temp Pulse Resp B/P Pulse Ox O2 Delivery O2 Flow Rate FiO2 02/09/17 20:41 67 18 97 Nasal Cannula 1.00 02/09/17 20:22 36.6 98/63 Intake and Output 02/08/17 02/08/17 02/09/17 Cumulative From/Thru 15:00 23:00 07:00 01/31/17 22:39 - 02/09/17 06:20 Intake Total 230 ml 100 ml 9930 ml Output Total 700 ml 400 ml 66154 ml Balance -470 ml -300 ml -970 ml Intake Oral 220 ml 100 ml 5453 ml IV Total 10 ml 4477 ml Output Urine Total 700 ml 400 ml 95032 ml # Voids 8 # Bowel Movements 0 2 Exam General: Patient appears to be more alert and responsive again today. She is brighter. She is in no apparent distress and has no new complaints. HEENT: Head is atraumatic and normocephalic. Eyes: Pupils are equally round and reactive to light and accommodation. Extraocular muscles are intact. Sclera are white, anicteric. Subconjunctival mucosa is pink. Ears and nose are unremarkable. Oropharynx: There is no mucosal lesions, there is no thrush, there is no pharyngitis. Neck: Is supple, there are no nodes, or masses or tenderness. Chest: The patient's breath sounds are clearer today. However, there still are significant crackles in the left lung. Heart: Rate, rhythm is regular. There is no murmur, rub or gallop. Abdomen: Good bowel sounds are present. Abdomen is soft, nontender, no organomegaly or masses were appreciated. Extremities: Are symmetrical and well perfused. There is no edema, there is no cellulitis, no rash. Neurologic: There are no focal neurological deficits. Cranial nerves II through XII are intact. There are no sensory or motor deficits. Psychiatric: Patients mood is calm and shows no sign of agitation. Genital: Deferred Rectal: Deferred Lab and Diagnostics Result Diagram: 02/09/17 0710 02/09/17 0710 X-Rays, CTs and MRIs CT ANGIO CHEST PULMONARY EMBOLISM IMPRESSION: Large area of left perihilar, masslike consolidation presumably pneumonia although recommend short interval followup with repeat radiographs or CT after treatment, to exclude neoplasm. No evidence of pulmonary embolism. Mild cardiomegaly. Dictated by: Duarte Wheatley M.D. on 02/01/2017 at 10:05 MRI BRAIN WITH AND WITHOUT CONTRAST IMPRESSION: Bilateral (T2 hypointense) maxillary sinus disease as detailed above. 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 Scattered bilateral mastoid air cell fluid. This is technically age indeterminate and recommend clinical correlation. No abnormal enhancement. Dictated by: Duarte Wheatley M.D. on 02/03/2017 at 9:24 X-RAY CHEST ONE VIEW, PORTABLE IMPRESSION: Worsening multifocal air space opacities likely pneumonia. Continued radiographic surveillance to resolution is recommended. Dictated by: Edward SILVERMAN Interpreted: Angela Loza MD on 02/04/2017 at 11:19 X-RAY KUB IMPRESSION: Nonspecific bowel gas pattern. If patient's symptoms persist, recommend repeat imaging or CT. Dictated by: Edward SILVERMAN Interpreted: Angela Loza MD on 02/04/2017 at 11:22 PROCEDURE: CT CHEST WITH CONTRAST ([id number]) INDICATIONS: possible left hilar mass on chest x-ray TECHNIQUE: After the administration of intravenous contrast, 5 mm thick sections acquired from the pulmonary apices to the posterior costophrenic angles. 7 mm thick coronal and sagittal MIP reformats were acquired. For radiation dose reduction , the following was used: automated exposure control, adjustment of mA and/or kV according to patient size. COMPARISON: [facility], CT, CT ANGIO CHEST PE, 02/01/2017, 1:56. [facility], CR, XR CHEST 2VW, 01/31/2017, 17:42. [facility], CR, XR CHEST 2VW, 11/02/2016, 20:35. [facility], CR, XR CHEST 2VW, 02/07/2017, 8:45. FINDINGS: Image quality: Excellent. Lungs and pleura: Is identified on the 02/01/17 CT chest examination, there is an appearance of left perihilar consolidation with groundglass like opacities. There has been minimal interval improvement compared to prior exam. This corresponds to the chest x-ray abnormality of 02/07/17. Subcentimeter areas of groundglass like opacity are present within the right lower lobe, new compared to prior exam. Dependent changes are present within the left base. Mediastinum: Heart size is normal. No pericardial effusion. No mediastinal or hilar adenopathy by size criteria. Thoracic aorta and central pulmonary arteries are normal in size. Esophagus is normal in caliber. No hiatal hernia. Bones and chest wall: No suspicious bony lesions. No vertebral body compression fractures. No axillary or supraclavicular adenopathy by size criteria. Thyroid gland is unremarkable. Abdomen: Visualized upper abdominal solid organs appear normal. Upper abdominal bowel loops are normal in caliber. IMPRESSION: 1. Persistent appearance of left perihilar consolidation mass or groundglass opacities as identified on the 02/01/17 exam, demonstrating minimal interval improvement. Small sub-centimeters groundglass opacity are present at the right base, appearing new. Overall appearance is suggestive of infection or inflammation. Recommend interval followup after appropriate therapy to document resolution and exclude presence of underlying mass lesion. Dictated by: Esperanza Willams M.D. on 02/08/2017 at 10:43 Approved by: Esperanza Willams M.D. 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 Patient was diagnosed with sepsis, acute hypoxic respiratory failure secondary to pneumonia. Hospital day #8. Acute hypoxic respiratory failure secondary to CAP, presenting with sepsis, present on admission. Active and improving very slowly. - The patient's oxygen requirements appear to be improving. Patient is not on oxygen at home. - Pneumonia presenting with peribronchial consolidation and mass-like lesion on CTA of chest - Follow up blood cultures are negative - Viral respiratory PCR panel negative - The urine strep and urine Legionella antigens negative - Antibiotic day #8, on Rocephin and Azithromycin for CAP. - Supplemental O2 as needed, respiratory therapy following. Her demand is improving. - The repeat chest x-ray shows no significant change after a week of antibiotic therapy. Possibilities include the x-ray findings lagging and behind her clinical response. However, there is a question of a mass in the left hilar area. Therefore we checked a CT scan of the chest. A repeat CT of the chest showed minimal improvement from the CT performed 1 week ago. As patient is making some improvements this could be simply the radiological findings lagging behind the patient's clinical response. Normocytic normochromic anemia, present on admission, active, stable. -Iron low, sat low, TIBC normal, probably iron deficiency anemia as well as anemia of chronic disease -We will continue to monitor with daily CBC. -We will continue iron supplementation with ferrous gluconate Hyperglycemia, present on admission, resolved -The hgba1c is normal. -The blood glucose normalized, will stop correctional Lispro Hypovolemic hyponatremia, present on admission, resolved. -Responded nicely to normal saline. IVF stopped. Possible History of chronic diastolic CHF - Patient reports a history of CHF, but last echo showed LVEF of 60% with no discernible diastolic dysfunction Chronic pain syndrome , POA and active - Currently stable - Continue with home medications Essential Hypertension, POA and stable - Currently stable - Hold blood pressure medications for now Chronic problems, present on admission: Hyperlipidemia - stable -Continue with home medications GERD -Continue with home medications Chronic migraines -Continue with home medications -MRI not revealing of any acute pathology in the brain. Note sinusitis. Sinusitis, chronic -Not under control Constipation, secondary to opiates -Currently stable, not under control -KUB not revealing of severe constipation -We will add Dulcolax suppository A one time fleets enema was given yesterday. Anxiety and depression -Continue with home medications DVT PROPHYLAXIS: Lovenox sq Disposition: Likely patient will be in the hospital for 1-2 more days as she is evaluated and treated for the above conditions. Pain Evaluation: Adequate Pain Control VTE Prophylaxis: Sub-Q Enoxaparin, SCDs VTE Mechanical Devices: Intermittant Pneumatic CD Resuscitation Status: CPR: Attempt Resuscitation [place] te[place] MD February 09, 2017 23:42
[2017-02-10] VITALS (7 sets, daily range): BP systolic 91–98; BP diastolic 60–65; PULSE 57–86; RESP 16–20; O2SAT 92–99
[2017-02-10] MEDS: oxyCODONE-Acetamin 10-325 mg Tablet PO PRN ×3 (05:49→18:11)
--- NOTE | 2017-02-10 06:19 | NUR ---
Pain Patient had generalized pain 8/10 overnight medicated with percocet per request. 30 minutes later patient sleeping, breathing nonlabored. patient on1L via NC with CPOX in place.
[2017-02-10] MEDS: Albuterol-Ipratropium 3 mL Inhalation Solution NEB SCH ×4 (07:19→20:34)
[2017-02-10 08:11] LABS: Magnesium 2.3 mg/dL (1.6-2.6)
[2017-02-10] MEDS: Pantoprazole 40 mg ER24 Tablet PO SCH ×2 (08:14→20:15)
--- NOTE | 2017-02-10 13:20 | NUR ---
NUTRITION FOLLOW-UP: ASSESS: 61 YO Female admitted for pneumonia. Pt po intake is improving with pt now eating 25-100% of meals. PMHX: Asthma, HTN, HLD, GERD, CHF LABS: Reviewed. Alb 3.5. MEDS: Reviewed. GI: BM x 1 (02/07) CURRENT WTS: 62.5 kg. admit wt 68.4 kg DIET: Heart healthy, Yogurt all trays. PO 25-100%. EST. NEEDS: Kcals: 4634-3484 kcal/day (25-30 kcal/kg) Pro: 70-80 g/day (1.0-1.2 g/kg) NUTRITION DIAGNOSIS: 1.) Inadequate oral intake related to persistent nausea as evidence by pt only eating bites x4 days--IMPROVING, PO 25-100%. NUTRITION INTERVENTION: 1.) Continue to send yogurt all trays (pt does not ensure). MONITOR / EVAL: PO intake, weight, labs, GI and nutrition status. Will continue to monitor per moderate nutrition risk guidelines
--- NOTE | 2017-02-10 14:15 | NUR ---
Ambulate w/Nsg Pt is released to ambulate w/nsg using AC and CGA/SBA prn 2-3x/day as pt tolerates. Pt has met all PT goals and is discharged from further PT at this time.
--- NOTE | 2017-02-10 14:26 | NUR ---
Social Work-readiness for discharge: data:EMR reviewed. Pt is on day 9 of hospitalization for multilobar pneumonia per H&P. Per morning rounds Pt is not medically stable to discharge and is likely to discharge tomorrow. PT has seen pt and recommended home with HH services. SW checked in with pt again and she continued to decline HH services. SW asked pt to let SW know is she changes her mind. Anticipate pt to be on oral abx at discharge. Pt's family to provide transport home. No anticipated discharge needs. SW will continue to follow if needs arise. Assessment:pt who is independent at baseline. Plan:Pt to discharge home when medically stable via POV. Pt declining HH Services. No anticipated discharge needs. SW will continue to follow if needs arise. DONELL Espino
[2017-02-10] MEDS: cefTRIAXone Inj 2,000 MG in Dextrose 5% Minibag Plus 50 ML IV SCH (20:16)
--- NOTE | 2017-02-10 23:52 | PCM.PNMED ---
Subjective Date of Service February 10, 2017 Subjective Patient states she does not feel well today. He does not feel like she is up for going home. She has no specific complaints. Exam Vital Signs Vital Sign - Last Date Time Temp Pulse Resp B/P Pulse Ox O2 Delivery O2 Flow Rate FiO2 02/10/17 21:27 36.6 76 16 98/60 95 Nasal Cannula 1.00 Intake and Output 02/09/17 02/09/17 02/10/17 Cumulative From/Thru 15:00 23:00 07:00 01/31/17 22:39 - 02/10/17 06:31 Intake Total 600 ml 200 ml 21398 ml Output Total 700 ml 250 ml 15958 ml Balance -100 ml -50 ml -1120 ml Intake Oral 600 ml 200 ml 6253 ml IV Total 4477 ml Output Urine Total 700 ml 250 ml 82818 ml # Voids 8 # Bowel Movements 2 Exam General: Patient appears to not feel well today. She is in no apparent distress. HEENT: Head is atraumatic and normocephalic. Eyes: Pupils are equally round and reactive to light and accommodation. Extraocular muscles are intact. Sclera are white, anicteric. Subconjunctival mucosa is pink. Ears and nose are unremarkable. Oropharynx: There is no mucosal lesions, there is no thrush, there is no pharyngitis. Neck: Is supple, there are no nodes, or masses or tenderness. Chest: The patient's breath sounds are clearer again today. However, there still are some rales in the left lung greater than the right lung. Heart: Rate, rhythm is regular. There is no murmur, rub or gallop. Abdomen: Good bowel sounds are present. Abdomen is soft, nontender, no organomegaly or masses were appreciated. Extremities: Are symmetrical and well perfused. There is no edema, there is no cellulitis, no rash. Neurologic: There are no focal neurological deficits. Cranial nerves II through XII are intact. There are no sensory or motor deficits. Psychiatric: Patients mood is calm and shows no sign of agitation. Genital: Deferred Rectal: Deferred Lab and Diagnostics Result Diagram: 02/09/17 0710 02/10/17 0722 Microbiology Respiratory viral PCR and blood cultures are negative. X-Rays, CTs and MRIs CT ANGIO CHEST PULMONARY EMBOLISM IMPRESSION: Large area of left perihilar, masslike consolidation presumably pneumonia although recommend short interval followup with repeat radiographs or CT after treatment, to exclude neoplasm. No evidence of pulmonary embolism. Mild cardiomegaly. Dictated by: Duarte Wheatley M.D. on 02/01/2017 at 10:05 MRI BRAIN WITH AND WITHOUT CONTRAST IMPRESSION: Bilateral (T2 hypointense) maxillary sinus disease as detailed above. 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 Scattered bilateral mastoid air cell fluid. This is technically age indeterminate and recommend clinical correlation. No abnormal enhancement. Dictated by: Duarte Wheatley M.D. on 02/03/2017 at 9:24 X-RAY CHEST ONE VIEW, PORTABLE IMPRESSION: Worsening multifocal air space opacities likely pneumonia. Continued radiographic surveillance to resolution is recommended. Dictated by: Edward SILVERMAN Interpreted: Angela Loza MD on 02/04/2017 at 11:19 X-RAY KUB IMPRESSION: Nonspecific bowel gas pattern. If patient's symptoms persist, recommend repeat imaging or CT. Dictated by: Edward SILVERMAN Interpreted: Angela Loza MD on 02/04/2017 at 11:22 PROCEDURE: CT CHEST WITH CONTRAST ([id number]) INDICATIONS: possible left hilar mass on chest x-ray TECHNIQUE: After the administration of intravenous contrast, 5 mm thick sections acquired from the pulmonary apices to the posterior costophrenic angles. 7 mm thick coronal and sagittal MIP reformats were acquired. For radiation dose reduction , the following was used: automated exposure control, adjustment of mA and/or kV according to patient size. COMPARISON: [facility], CT, CT ANGIO CHEST PE, 02/01/2017, 1:56. [facility], CR, XR CHEST 2VW, 01/31/2017, 17:42. [facility], CR, XR CHEST 2VW, 11/02/2016, 20:35. [facility], CR, XR CHEST 2VW, 02/07/2017, 8:45. FINDINGS: Image quality: Excellent. Lungs and pleura: Is identified on the 02/01/17 CT chest examination, there is an appearance of left perihilar consolidation with groundglass like opacities. There has been minimal interval improvement compared to prior exam. This corresponds to the chest x-ray abnormality of 02/07/17. Subcentimeter areas of groundglass like opacity are present within the right lower lobe, new compared to prior exam. Dependent changes are present within the left base. Mediastinum: Heart size is normal. No pericardial effusion. No mediastinal or hilar adenopathy by size criteria. Thoracic aorta and central pulmonary arteries are normal in size. Esophagus is normal in caliber. No hiatal hernia. Bones and chest wall: No suspicious bony lesions. No vertebral body compression fractures. No axillary or supraclavicular adenopathy by size criteria. Thyroid gland is unremarkable. Abdomen: Visualized upper abdominal solid organs appear normal. Upper abdominal bowel loops are normal in caliber. IMPRESSION: 1. Persistent appearance of left perihilar consolidation mass or groundglass opacities as identified on the 02/01/17 exam, demonstrating minimal interval improvement. Small sub-centimeters groundglass opacity are present at the right base, appearing new. Overall appearance is suggestive of infection or inflammation. Recommend interval followup after appropriate therapy to document resolution and exclude presence of underlying mass lesion. Dictated by: Esperanza Willams M.D. on 02/08/2017 at 10:43 Approved by: Esperanza Willams M.D. 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 Patient was diagnosed with sepsis, acute hypoxic respiratory failure secondary to pneumonia. Hospital day #9. Acute hypoxic respiratory failure secondary to CAP, presenting with sepsis, present on admission. Active and improving very slowly. - The patient's oxygen requirements appear to be improving. Patient is not on oxygen at home. - Pneumonia presenting with peribronchial consolidation and mass-like lesion on CTA of chest - Follow up blood cultures are negative - Viral respiratory PCR panel negative - The urine strep and urine Legionella antigens negative - Antibiotic day #9, on Rocephin and Azithromycin for CAP. - Supplemental O2 as needed, respiratory therapy following. Her demand is improving. - The repeat chest x-ray shows no significant change after a week of antibiotic therapy. Possibilities include the x-ray findings lagging and behind her clinical response. However, there is a question of a mass in the left hilar area. Therefore we checked a CT scan of the chest. A repeat CT of the chest showed minimal improvement from the CT performed 1 week ago. As patient is making some improvements this could be simply the radiological findings lagging behind the patient's clinical response. Normocytic normochromic anemia, present on admission, active, stable. -Iron low, sat low, TIBC normal, probably iron deficiency anemia as well as anemia of chronic disease -We will continue to monitor with daily CBC. -We will continue iron supplementation with ferrous gluconate Hyperglycemia, present on admission, resolved -The hgba1c is normal. -The blood glucose normalized, will stop correctional Lispro Hypovolemic hyponatremia, present on admission, resolved. -Responded nicely to normal saline. IVF stopped. Possible History of chronic diastolic CHF - Patient reports a history of CHF, but last echo showed LVEF of 60% with no discernible diastolic dysfunction Chronic pain syndrome , POA and active - Currently stable - Continue with home medications Essential Hypertension, POA and stable - Currently stable - Hold blood pressure medications for now Chronic problems, present on admission: Hyperlipidemia - stable -Continue with home medications GERD -Continue with home medications Chronic migraines -Continue with home medications -MRI not revealing of any acute pathology in the brain. Note sinusitis. Sinusitis, chronic -Not under control Constipation, secondary to opiates -Currently stable, not under control -KUB not revealing of severe constipation -We will add Dulcolax suppository A one time fleets enema was given yesterday. Anxiety and depression -Continue with home medications DVT PROPHYLAXIS: Lovenox sq Disposition: Likely patient will be in the hospital for 1 more day as she is evaluated and treated for the above conditions. Pain Evaluation: Adequate Pain Control VTE Prophylaxis: Sub-Q Enoxaparin, SCDs VTE Mechanical Devices: Venous Foot Pump Resuscitation Status: CPR: Attempt Resuscitation FosterOswaldo MD February 10, 2017 23:52
[2017-02-11] MEDS: oxyCODONE-Acetamin 10-325 mg Tablet PO PRN ×4 (00:09→18:11)
--- NOTE | 2017-02-11 04:24 | NUR ---
PT ACTIVITY/PAIN Pt has been up to BR, SBA w/ crutches. Pt tolerates activity well on RA, 1L on during NOC/in bed. Pt has had c/o "8" out of 10 pain "in head, chest and back." PRN and scheduled medications administered. Pt has been able to sleep during shift. Continue to monitor. Call light in reach. Bed alarm on. Intentional rounding.
[2017-02-11 05:51] VITALS: BP 105/70; PULSE 83; RESP 16; O2SAT 95
[2017-02-11] MEDS: Pantoprazole 40 mg ER24 Tablet PO SCH ×2 (07:41→20:01)
[2017-02-11 07:55] LABS: BASOPHILS % (AUTO) 0.7 % (0-3); EOSINOPHILS % (AUTO) 3.9 % (0-5); MONOCYTES % (AUTO) 8.2 % (4-12); Mean Corpuscular Hemoglobin 30.3 pg (27.0-35.0); Mean Corpuscular Volume 98.1 fL (81-100); NEUTROPHILS % (AUTO) 37.7 % (40-74); Platelet Count 272 bil/L (150-400)
[2017-02-11 08:43] LABS: Magnesium 2.1 mg/dL (1.6-2.6)
[2017-02-11] MEDS: Albuterol-Ipratropium 3 mL Inhalation Solution NEB SCH ×4 (09:07→20:03)
[2017-02-11 09:08] VITALS: PULSE 71; RESP 18; O2SAT 93
[2017-02-11] MEDS ORDERED: cefTRIAXone Inj 2,000 MG in Dextrose 5% Minibag Plus 50 ML IV ONE (12:00)
[2017-02-11 13:39] VITALS: BP 90/61; PULSE 74; RESP 16; O2SAT 94
[2017-02-11 16:46] VITALS: PULSE 74; RESP 18; O2SAT 96
[2017-02-11 20:03] VITALS: PULSE 73; RESP 16; O2SAT 95
[2017-02-11 22:34] VITALS: BP 89/56; PULSE 72; RESP 16; O2SAT 96
--- NOTE | 2017-02-11 23:42 | PCM.PNMED ---
Subjective Date of Service February 11, 2017 Subjective Patient is feeling about the same. She has no new complaints. Exam Vital Signs Vital Sign - Last Date Time Temp Pulse Resp B/P Pulse Ox O2 Delivery O2 Flow Rate FiO2 02/11/17 22:34 36.6 72 16 89/56 96 Nasal Cannula 2.00 Intake and Output 02/10/17 02/10/17 02/11/17 Cumulative From/Thru 15:00 23:00 07:00 01/31/17 22:39 - 02/11/17 06:51 Intake Total 1190 ml 350 ml 49996 ml Output Total 1400 ml 450 ml 46402 ml Balance -210 ml -100 ml -1430 ml Intake Oral 1120 ml 350 ml 7723 ml IV Total 70 ml 4547 ml Output Urine Total 1400 ml 450 ml 98681 ml # Voids 8 # Bowel Movements 0 0 2 Exam General: Patient appears to feel a little better today. She is in no apparent distress. HEENT: Head is atraumatic and normocephalic. Eyes: Pupils are equally round and reactive to light and accommodation. Extraocular muscles are intact. Sclera are white, anicteric. Subconjunctival mucosa is pink. Ears and nose are unremarkable. Oropharynx: There is no mucosal lesions, there is no thrush, there is no pharyngitis. Neck: Is supple, there are no nodes, or masses or tenderness. Chest: The patient's breath sounds are slightly clearer again today. Heart: Rate, rhythm is regular. There is no murmur, rub or gallop. Abdomen: Good bowel sounds are present. Abdomen is soft, nontender, no organomegaly or masses were appreciated. Extremities: Are symmetrical and well perfused. There is no edema, there is no cellulitis, no rash. Neurologic: There are no focal neurological deficits. Cranial nerves II through XII are intact. There are no sensory or motor deficits. Psychiatric: Patients mood is calm and she shows no sign of agitation. Genital: Deferred Rectal: Deferred Lab and Diagnostics Result Diagram: 02/11/17 0720 02/11/17 07 Microbiology Respiratory viral PCR and blood cultures are negative. X-Rays, CTs and MRIs CT ANGIO CHEST PULMONARY EMBOLISM IMPRESSION: Large area of left perihilar, masslike consolidation presumably pneumonia although recommend short interval followup with repeat radiographs or CT after treatment, to exclude neoplasm. No evidence of pulmonary embolism. Mild cardiomegaly. Dictated by: Duarte Wheatley M.D. on 02/01/2017 at 10:05 MRI BRAIN WITH AND WITHOUT CONTRAST IMPRESSION: Bilateral (T2 hypointense) maxillary sinus disease as detailed above. 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 Scattered bilateral mastoid air cell fluid. This is technically age indeterminate and recommend clinical correlation. No abnormal enhancement. Dictated by: Duarte Wheatley M.D. on 02/03/2017 at 9:24 X-RAY CHEST ONE VIEW, PORTABLE IMPRESSION: Worsening multifocal air space opacities likely pneumonia. Continued radiographic surveillance to resolution is recommended. Dictated by: Edward SILVERMAN Interpreted: Angela Loza MD on 02/04/2017 at 11:19 X-RAY KUB IMPRESSION: Nonspecific bowel gas pattern. If patient's symptoms persist, recommend repeat imaging or CT. Dictated by: Edward SILVERMAN Interpreted: Angela Loza MD on 02/04/2017 at 11:22 PROCEDURE: CT CHEST WITH CONTRAST ([id number]) INDICATIONS: possible left hilar mass on chest x-ray TECHNIQUE: After the administration of intravenous contrast, 5 mm thick sections acquired from the pulmonary apices to the posterior costophrenic angles. 7 mm thick coronal and sagittal MIP reformats were acquired. For radiation dose reduction , the following was used: automated exposure control, adjustment of mA and/or kV according to patient size. COMPARISON: [facility], CT, CT ANGIO CHEST PE, 02/01/2017, 1:56. [facility], CR, XR CHEST 2VW, 01/31/2017, 17:42. [facility], CR, XR CHEST 2VW, 11/02/2016, 20:35. [facility], CR, XR CHEST 2VW, 02/07/2017, 8:45. FINDINGS: Image quality: Excellent. Lungs and pleura: Is identified on the 02/01/17 CT chest examination, there is an appearance of left perihilar consolidation with groundglass like opacities. There has been minimal interval improvement compared to prior exam. This corresponds to the chest x-ray abnormality of 02/07/17. Subcentimeter areas of groundglass like opacity are present within the right lower lobe, new compared to prior exam. Dependent changes are present within the left base. Mediastinum: Heart size is normal. No pericardial effusion. No mediastinal or hilar adenopathy by size criteria. Thoracic aorta and central pulmonary arteries are normal in size. Esophagus is normal in caliber. No hiatal hernia. Bones and chest wall: No suspicious bony lesions. No vertebral body compression fractures. No axillary or supraclavicular adenopathy by size criteria. Thyroid gland is unremarkable. Abdomen: Visualized upper abdominal solid organs appear normal. Upper abdominal bowel loops are normal in caliber. IMPRESSION: 1. Persistent appearance of left perihilar consolidation mass or groundglass opacities as identified on the 02/01/17 exam, demonstrating minimal interval improvement. Small sub-centimeters groundglass opacity are present at the right base, appearing new. Overall appearance is suggestive of infection or inflammation. Recommend interval followup after appropriate therapy to document resolution and exclude presence of underlying mass lesion. Dictated by: Esperanza Willams M.D. on 02/08/2017 at 10:43 Approved by: Esperanza Willams M.D. 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 Patient was diagnosed with sepsis, acute hypoxic respiratory failure secondary to pneumonia. Hospital day #10. Acute hypoxic respiratory failure secondary to CAP, presenting with sepsis, present on admission. Active and improving very slowly. - The patient's oxygen requirements appear to be improving. Patient is not on oxygen at home. - Pneumonia presenting with peribronchial consolidation and mass-like lesion on CTA of chest - Follow up blood cultures are negative - Viral respiratory PCR panel negative - The urine strep and urine Legionella antigens negative - Antibiotic day #10, on Rocephin and Azithromycin for CAP. - Supplemental O2 as needed, respiratory therapy following. Her demand is improving. - The repeat chest x-ray shows no significant change after a week of antibiotic therapy. Possibilities include the x-ray findings lagging and behind her clinical response. However, there is a question of a mass in the left hilar area. Therefore we checked a CT scan of the chest. A repeat CT of the chest showed minimal improvement from the CT performed 1 week ago. As patient is making some improvements this could be simply the radiological findings lagging behind the patient's clinical response. Normocytic normochromic anemia, present on admission, active, stable. -Iron low, sat low, TIBC normal, probably iron deficiency anemia as well as anemia of chronic disease -We will continue to monitor with daily CBC. -We will continue iron supplementation with ferrous gluconate Hyperglycemia, present on admission, resolved -The hgba1c is normal. -The blood glucose normalized, will stop correctional Lispro Hypovolemic hyponatremia, present on admission, resolved. -Responded nicely to normal saline. IVF stopped. Possible History of chronic diastolic CHF - Patient reports a history of CHF, but last echo showed LVEF of 60% with no discernible diastolic dysfunction Chronic pain syndrome , POA and active - Currently stable - Continue with home medications Essential Hypertension, POA and stable - Currently stable - Hold blood pressure medications for now Chronic problems, present on admission: Hyperlipidemia - stable -Continue with home medications GERD -Continue with home medications Chronic migraines -Continue with home medications -MRI not revealing of any acute pathology in the brain. Note sinusitis. Sinusitis, chronic -Not under control Constipation, secondary to opiates -Currently stable, not under control -KUB not revealing of severe constipation -We will add Dulcolax suppository A one time fleets enema was given yesterday. Anxiety and depression -Continue with home medications DVT PROPHYLAXIS: Lovenox sq Disposition: Likely patient will be in the hospital for 1 more day as she is evaluated and treated for the above conditions. Pain Evaluation: Adequate Pain Control VTE Prophylaxis: Sub-Q Enoxaparin, SCDs VTE Mechanical Devices: Venous Foot Pump Resuscitation Status: CPR: Attempt Resuscitation Oswaldo Turner MD February 11, 2017 23:42
[2017-02-12] VITALS (9 sets, daily range): BP systolic 94–100; BP diastolic 63–68; PULSE 57–88; RESP 16–18; O2SAT 92–95
[2017-02-12] MEDS: oxyCODONE-Acetamin 10-325 mg Tablet PO PRN ×4 (00:09→18:51)
--- NOTE | 2017-02-12 06:46 | NUR ---
PAIN/OXYGEN NEEDS Pt continues to have generalized c/o pain "in head, chest and back". PRN pain medication administered, w/ adequate pain relief. Pt initially on 1L, nasal cannula. When pt asleep, oxygen saturations high 80s, CPOx alarming. Pt encouraged to deep breathe and acapella valve. Oxygen increased to 2L, oxygen saturations mid 90s. At end of shift, oxygen turned back down to 1L, 91-93%. Pt has not been trialed on RA at this time. Call light in reach. Intentional rounding.
[2017-02-12 06:59] LABS: BASOPHILS % (AUTO) 0.5 % (0-3); EOSINOPHILS % (AUTO) 4.4 % (0-5); MONOCYTES % (AUTO) 7.9 % (4-12); Mean Corpuscular Hemoglobin 30.1 pg (27.0-35.0); Mean Corpuscular Volume 96.8 fL (81-100); NEUTROPHILS % (AUTO) 37.6 % (40-74); Platelet Count 276 bil/L (150-400)
[2017-02-12 07:11] LABS: Magnesium 2.1 mg/dL (1.6-2.6)
[2017-02-12] MEDS: Pantoprazole 40 mg ER24 Tablet PO SCH ×2 (07:52→21:05)
[2017-02-12] MEDS: Albuterol-Ipratropium 3 mL Inhalation Solution NEB SCH ×4 (08:50→21:09)
[2017-02-12] MEDS: levoFLOXacin 750 mg Tablet PO SCH (14:40)
--- NOTE | 2017-02-12 14:49 | NUR ---
Patient does not qualify for home oxygen 14/04 but does desaturate during sleep. Patient will need to have a nocturnal home oxygen study done to qualify for home nocturnal oxygen. Order sent to [facility] and set up with [facility] to delivery nocturnal oxygen study to qualify patient. If patient does qualify for home oxygen order will be sent to the patient primary care provider to order the home oxygen. Addendum: 02/12/17 at 1640 by GISELLA ROSA RCP Dr. Turner would like patient to remain inpatient and have the nocturnal oximetry study done to qualify for home nocturnal oxygen. Study set up with [facility] as [facility] is unable to meet the needs of the study. Study to be performed inpatient night of 02/12/17.
--- NOTE | 2017-02-12 16:25 | NUR ---
Nocturnal sleep study Patient requires supplemental O2 at night and is on RA during the day. MD ordered nocturnal sleep study for patient to see if she would qualify for nocturnal home O2. Patient was explained that this test was ordered. Patient was agreeable to the nocturnal sleep study.
[2017-02-13] VITALS (8 sets, daily range): BP systolic 90–103; BP diastolic 62–71; PULSE 71–92; RESP 16–18; O2SAT 88–96
[2017-02-13] MEDS: oxyCODONE-Acetamin 10-325 mg Tablet PO PRN ×4 (00:56→18:59)
--- NOTE | 2017-02-13 01:04 | PCM.PNMED ---
Subjective Date of Service February 12, 2017 Subjective Patient is feeling a slight bit better again today. She is breathing better and is less short of breath. She has no new complaints. Exam Vital Signs Vital Sign - Last Date Time Temp Pulse Resp B/P Pulse Ox O2 Delivery O2 Flow Rate FiO2 02/12/17 21:09 71 16 95 Room Air 02/12/17 20:35 36.9 94/63 02/12/17 16:37 1.00 Intake and Output 02/12/17 02/12/17 02/13/17 Cumulative From/Thru 15:00 23:00 07:00 01/31/17 22:39 - 02/12/17 17:49 Intake Total 5 ml 700 ml 58626 ml Output Total 800 ml 34591 ml Balance 5 ml -100 ml -979 ml Intake Oral 700 ml 9769 ml IV Total 5 ml 4552 ml Output Urine Total 800 ml 26143 ml # Voids 8 # Bowel Movements 2 Exam General: Patient appears slightly more awake today she appears brighter. She is in no apparent distress. HEENT: Head is atraumatic and normocephalic. Eyes: Pupils are equally round and reactive to light and accommodation. Extraocular muscles are intact. Sclera are white, anicteric. Subconjunctival mucosa is pink. Ears and nose are unremarkable. Oropharynx: There is no mucosal lesions, there is no thrush, there is no pharyngitis. Neck: Is supple, there are no nodes, or masses or tenderness. Chest: The patient's breath sounds are slightly clearer again today. Heart: Rate, rhythm is regular. There is no murmur, rub or gallop. Abdomen: Good bowel sounds are present. Abdomen is soft, nontender, no organomegaly or masses were appreciated. Extremities: Are symmetrical and well perfused. There is no edema, there is no cellulitis, no rash. Neurologic: There are no focal neurological deficits. Cranial nerves II through XII are intact. There are no sensory or motor deficits. Psychiatric: Patients mood is calm and she shows no sign of agitation. Genital: Deferred Rectal: Deferred Lab and Diagnostics Result Diagram: 02/12/17 0640 02/12/17 0640 Microbiology Respiratory viral PCR and blood cultures are negative. X-Rays, CTs and MRIs CT ANGIO CHEST PULMONARY EMBOLISM IMPRESSION: Large area of left perihilar, masslike consolidation presumably pneumonia although recommend short interval followup with repeat radiographs or CT after treatment, to exclude neoplasm. No evidence of pulmonary embolism. Mild cardiomegaly. Dictated by: Duarte Wheatley M.D. on 02/01/2017 at 10:05 MRI BRAIN WITH AND WITHOUT CONTRAST IMPRESSION: Bilateral (T2 hypointense) maxillary sinus disease as detailed above. 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 Scattered bilateral mastoid air cell fluid. This is technically age indeterminate and recommend clinical correlation. No abnormal enhancement. Dictated by: Duarte Wheatley M.D. on 02/03/2017 at 9:24 X-RAY CHEST ONE VIEW, PORTABLE IMPRESSION: Worsening multifocal air space opacities likely pneumonia. Continued radiographic surveillance to resolution is recommended. Dictated by: Edward SILVERMAN Interpreted: Angela Loza MD on 02/04/2017 at 11:19 X-RAY KUB IMPRESSION: Nonspecific bowel gas pattern. If patient's symptoms persist, recommend repeat imaging or CT. Dictated by: Edward SILVERMAN Interpreted: Angela Loza MD on 02/04/2017 at 11:22 PROCEDURE: CT CHEST WITH CONTRAST ([id number]) INDICATIONS: possible left hilar mass on chest x-ray TECHNIQUE: After the administration of intravenous contrast, 5 mm thick sections acquired from the pulmonary apices to the posterior costophrenic angles. 7 mm thick coronal and sagittal MIP reformats were acquired. For radiation dose reduction , the following was used: automated exposure control, adjustment of mA and/or kV according to patient size. COMPARISON: [facility], CT, CT ANGIO CHEST PE, 02/01/2017, 1:56. [facility], CR, XR CHEST 2VW, 01/31/2017, 17:42. [facility], CR, XR CHEST 2VW, 11/02/2016, 20:35. [facility], CR, XR CHEST 2VW, 02/07/2017, 8:45. FINDINGS: Image quality: Excellent. Lungs and pleura: Is identified on the 02/01/17 CT chest examination, there is an appearance of left perihilar consolidation with groundglass like opacities. There has been minimal interval improvement compared to prior exam. This corresponds to the chest x-ray abnormality of 02/07/17. Subcentimeter areas of groundglass like opacity are present within the right lower lobe, new compared to prior exam. Dependent changes are present within the left base. Mediastinum: Heart size is normal. No pericardial effusion. No mediastinal or hilar adenopathy by size criteria. Thoracic aorta and central pulmonary arteries are normal in size. Esophagus is normal in caliber. No hiatal hernia. Bones and chest wall: No suspicious bony lesions. No vertebral body compression fractures. No axillary or supraclavicular adenopathy by size criteria. Thyroid gland is unremarkable. Abdomen: Visualized upper abdominal solid organs appear normal. Upper abdominal bowel loops are normal in caliber. IMPRESSION: 1. Persistent appearance of left perihilar consolidation mass or groundglass opacities as identified on the 02/01/17 exam, demonstrating minimal interval improvement. Small sub-centimeters groundglass opacity are present at the right base, appearing new. Overall appearance is suggestive of infection or inflammation. Recommend interval followup after appropriate therapy to document resolution and exclude presence of underlying mass lesion. Dictated by: Esperanza Willams M.D. on 02/08/2017 at 10:43 Approved by: Esperanza Willams M.D. 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 Patient was diagnosed with sepsis, acute hypoxic respiratory failure secondary to pneumonia. Hospital day #11. Acute hypoxic respiratory failure secondary to CAP, presenting with sepsis, present on admission. Active and improving very slowly. - The patient's oxygen requirements appear to be improving. Patient is not on oxygen at home. - Pneumonia presenting with peribronchial consolidation and mass-like lesion on CTA of chest - Follow up blood cultures are negative - Viral respiratory PCR panel negative - The urine strep and urine Legionella antigens negative - Antibiotic day #11, Rocephin and Azithromycin changed to oral Levaquin for CAP. Would continue Levaquin for 5 days total.(4 more days) - Supplemental O2 as needed, respiratory therapy following. Her demand is improving. However patient continues to require oxygen at night. We will do nocturnal oximetry testing this evening and if she continues to require oxygen at night will discharge home on oxygen for nighttime use. - The repeat chest x-ray shows no significant change after a week of antibiotic therapy. Possibilities include the x-ray findings lagging and behind her clinical response. However, there is a question of a mass in the left hilar area. Therefore we checked a CT scan of the chest. A repeat CT of the chest showed minimal improvement from the CT performed 1 week ago. As patient is making some improvements this could be simply the radiological findings lagging behind the patient's clinical response. Normocytic normochromic anemia, present on admission, active, stable. -Iron low, sat low, TIBC normal, probably iron deficiency anemia as well as anemia of chronic disease -We will continue to monitor with daily CBC. -We will continue iron supplementation with ferrous gluconate Hyperglycemia, present on admission, resolved -The hgba1c is normal. -The blood glucose normalized, will stop correctional Lispro Hypovolemic hyponatremia, present on admission, resolved. -Responded nicely to normal saline. IVF stopped. Possible History of chronic diastolic CHF - Patient reports a history of CHF, but last echo showed LVEF of 60% with no discernible diastolic dysfunction Chronic pain syndrome , POA and active - Currently stable - Continue with home medications Essential Hypertension, POA and stable - Currently stable - Hold blood pressure medications for now Chronic problems, present on admission: Hyperlipidemia - stable -Continue with home medications GERD -Continue with home medications Chronic migraines -Continue with home medications -MRI not revealing of any acute pathology in the brain. Note sinusitis. Sinusitis, chronic -Not under control Constipation, secondary to opiates -Currently stable, not under control -KUB not revealing of severe constipation -We will add Dulcolax suppository A one time fleets enema was given yesterday. Anxiety and depression -Continue with home medications DVT PROPHYLAXIS: Lovenox sq Disposition: Likely patient will be in the hospital for 1 more day as she is evaluated and treated for the above conditions. Patient is to have nocturnal oximetry testing this evening and if she continues to require oxygen will discharge home on oxygen for nocturnal use. Dr. Cuenca to follow in a.m. Pain Evaluation: Adequate Pain Control VTE Prophylaxis: Sub-Q Enoxaparin, SCDs VTE Mechanical Devices: Venous Foot Pump Resuscitation Status: CPR: Attempt Resuscitation YueOswaldo MD February 13, 2017 01:04
--- NOTE | 2017-02-13 04:57 | NUR ---
SLEEP STUDY Sleep study wrist/finger device placed on pt during evening by RT. Pt to remain on RA to determine oxygen saturations when asleep/during NOC. Pt also placed on CPOx. After sleep aids and usual requested night times medications, pts oxygen saturations mostly in 80s. Pt remained easily arousable. Continue to monitor. Call light in reach. Bed alarm on. Frequent checks on pt.
[2017-02-13] MEDS: Pantoprazole 40 mg ER24 Tablet PO SCH ×2 (08:16→21:13)
[2017-02-13] MEDS: levoFLOXacin 750 mg Tablet PO SCH (08:16)
[2017-02-13] MEDS: Albuterol-Ipratropium 3 mL Inhalation Solution NEB SCH ×4 (08:28→20:35)
--- NOTE | 2017-02-13 14:26 | PCM.PNMED ---
Subjective Date of Service February 13, 2017 Subjective pt c/o lightheadedness and SOB when walking in the room to bathroom also has severe frontal throbbing GREEN, retroorbital pain, 03/31, after sumatriptain given this AM still has cough, no sputum, thinks that sputum is breaking up Exam Vital Signs Vital Sign - Last Date Time Temp Pulse Resp B/P Pulse Ox O2 Delivery O2 Flow Rate FiO2 02/13/17 08:28 72 16 93 Room Air 02/13/17 05:08 37.0 102/69 02/12/17 16:37 1.00 Intake and Output 02/12/17 02/12/17 02/13/17 Cumulative From/Thru 15:00 23:00 07:00 01/31/17 22:39 - 02/13/17 06:25 Intake Total 5 ml 700 ml 200 ml 48163 ml Output Total 800 ml 450 ml 01719 ml Balance 5 ml -100 ml -250 ml -1229 ml Intake Oral 700 ml 200 ml 9969 ml IV Total 5 ml 4552 ml Output Urine Total 800 ml 450 ml 54988 ml # Voids 8 # Bowel Movements 2 Exam looked weak, NAD, comfortably laying down on the bed no JVD, MMM, no LAD RRR, nl s1, s2 no mrg Lt basilar decreased BS, crackles, S,ND,NT,normoactive BS+ warm, no edema, pulses 2/2 Lab and Diagnostics Result Diagram: 02/12/17 0640 02/13/17 0620 Microbiology Respiratory viral PCR and blood cultures are negative. X-Rays, CTs and MRIs CT ANGIO CHEST PULMONARY EMBOLISM IMPRESSION: Large area of left perihilar, masslike consolidation presumably pneumonia although recommend short interval followup with repeat radiographs or CT after treatment, to exclude neoplasm. No evidence of pulmonary embolism. Mild cardiomegaly. Dictated by: Duarte Wheatley M.D. on 02/01/2017 at 10:05 MRI BRAIN WITH AND WITHOUT CONTRAST IMPRESSION: Bilateral (T2 hypointense) maxillary sinus disease as detailed above. 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 Scattered bilateral mastoid air cell fluid. This is technically age indeterminate and recommend clinical correlation. No abnormal enhancement. Dictated by: Duarte Wheatley M.D. on 02/03/2017 at 9:24 X-RAY CHEST ONE VIEW, PORTABLE IMPRESSION: Worsening multifocal air space opacities likely pneumonia. Continued radiographic surveillance to resolution is recommended. Dictated by: Edward SILVERMAN Interpreted: Angela Loza MD on 02/04/2017 at 11:19 X-RAY KUB IMPRESSION: Nonspecific bowel gas pattern. If patient's symptoms persist, recommend repeat imaging or CT. Dictated by: Edward SILVERMAN Interpreted: Angela Loza MD on 02/04/2017 at 11:22 PROCEDURE: CT CHEST WITH CONTRAST ([id number]) INDICATIONS: possible left hilar mass on chest x-ray TECHNIQUE: After the administration of intravenous contrast, 5 mm thick sections acquired from the pulmonary apices to the posterior costophrenic angles. 7 mm thick coronal and sagittal MIP reformats were acquired. For radiation dose reduction , the following was used: automated exposure control, adjustment of mA and/or kV according to patient size. COMPARISON: [facility], CT, CT ANGIO CHEST PE, 02/01/2017, 1:56. [facility], CR, XR CHEST 2VW, 01/31/2017, 17:42. [facility], CR, XR CHEST 2VW, 11/02/2016, 20:35. [facility], CR, XR CHEST 2VW, 02/07/2017, 8:45. FINDINGS: Image quality: Excellent. Lungs and pleura: Is identified on the 02/01/17 CT chest examination, there is an appearance of left perihilar consolidation with groundglass like opacities. There has been minimal interval improvement compared to prior exam. This corresponds to the chest x-ray abnormality of 02/07/17. Subcentimeter areas of groundglass like opacity are present within the right lower lobe, new compared to prior exam. Dependent changes are present within the left base. Mediastinum: Heart size is normal. No pericardial effusion. No mediastinal or hilar adenopathy by size criteria. Thoracic aorta and central pulmonary arteries are normal in size. Esophagus is normal in caliber. No hiatal hernia. Bones and chest wall: No suspicious bony lesions. No vertebral body compression fractures. No axillary or supraclavicular adenopathy by size criteria. Thyroid gland is unremarkable. Abdomen: Visualized upper abdominal solid organs appear normal. Upper abdominal bowel loops are normal in caliber. IMPRESSION: 1. Persistent appearance of left perihilar consolidation mass or groundglass opacities as identified on the 02/01/17 exam, demonstrating minimal interval improvement. Small sub-centimeters groundglass opacity are present at the right base, appearing new. Overall appearance is suggestive of infection or inflammation. Recommend interval followup after appropriate therapy to document resolution and exclude presence of underlying mass lesion. Dictated by: Esperanza Willams M.D. on 02/08/2017 at 10:43 Approved by: Esperanza Willams M.D. 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 Patient was diagnosed with sepsis, acute hypoxic respiratory failure secondary to pneumonia. Hospital day #11. Acute hypoxic respiratory failure secondary to CAP, presenting with sepsis, present on admission. Active and improving very slowly. -pt still hypoxic at night, requiring O2, clinically improving but not at baseline, symptomatic with lightheadedness on ambulation - Pneumonia presenting with peribronchial consolidation and mass-like lesion on CTA of chest - Follow up blood cultures are negative - Viral respiratory PCR panel negative - The urine strep and urine Legionella antigens negative - Antibiotic day #11, Rocephin and Azithromycin changed to oral Levaquin for CAP. Would continue Levaquin for 5 days total.(4 more days) - Supplemental O2 as needed, respiratory therapy following. plan to discharge w /o O2 if possible. Left perihilar lession ddx: mass vs infection vs inflammation, -continue tx for PNA, pt denied constitutional sx suggestive of lung CA, non smoker -needs to repeat CT outpt in 3month migraine GREEN, POA, sumatriptan 100mg daily prn, required 50mg more today. Normocytic normochromic anemia, present on admission, active, stable. -Iron low, sat low, TIBC normal, probably iron deficiency anemia as well as anemia of chronic disease -We will continue to monitor with daily CBC. -We will continue iron supplementation with ferrous gluconate Hyperglycemia, present on admission, resolved -The hgba1c is normal. -The blood glucose normalized, will stop correctional Lispro Hypovolemic hyponatremia, present on admission, resolved. -Responded nicely to normal saline. IVF stopped. Possible History of chronic diastolic CHF - Patient reports a history of CHF, but last echo showed LVEF of 60% with no discernible diastolic dysfunction Chronic pain syndrome , POA and active - Currently stable - Continue with home medications Essential Hypertension, POA and stable - Currently stable - Hold blood pressure medications for now Chronic problems, present on admission: Hyperlipidemia - stable -Continue with home medications GERD -Continue with home medications Chronic migraines -Continue with home medications -MRI not revealing of any acute pathology in the brain. Note sinusitis. Sinusitis, chronic -Not under control Constipation, secondary to opiates -Currently stable, not under control -KUB not revealing of severe constipation -We will add Dulcolax suppository A one time fleets enema was given yesterday. Anxiety and depression -Continue with home medications DVT PROPHYLAXIS: Lovenox sq Disposition:d/c delayed given persistent symptoms, in 1-2more days, home, declined home health VTE Prophylaxis: Sub-Q Enoxaparin, SCDs VTE Mechanical Devices: Venous Foot Pump Resuscitation Status: CPR: Attempt Resuscitation Time spent 35min Yasmeen Cuenca MD February 13, 2017 09:27
--- NOTE | 2017-02-13 16:06 | NUR ---
Nocturnal oximetry study received and hard copy placed in paper chart for review. Patient does qualify for oxygen at night and will be set up upon discharge at home. Order form placed in chart and Dr. batres to update and request order to be signed prior to discharge.
[2017-02-13] MEDS: Polyethylene Glycol (PEG) 17 Gm Powder PO PRN (21:20)
[2017-02-14] MEDS: oxyCODONE-Acetamin 10-325 mg Tablet PO PRN ×2 (00:51→08:02)
[2017-02-14 05:51] LABS: BASOPHILS % (AUTO) 0.4 % (0-3); EOSINOPHILS % (AUTO) 3.5 % (0-5); MONOCYTES % (AUTO) 8.7 % (4-12); Mean Corpuscular Hemoglobin 31.1 pg (27.0-35.0); Mean Corpuscular Volume 93.4 fL (81-100); NEUTROPHILS % (AUTO) 35.1 % (40-74); Platelet Count 286 bil/L (150-400)
[2017-02-14 05:57] VITALS: BP 107/72; PULSE 62; RESP 18; O2SAT 95
--- NOTE | 2017-02-14 06:47 | NUR ---
Respiration Mild SOB at rest, increase with activities, no acute distress . Cough intermittently, non productive, pleuritic pain 5-8/10 with cough and deep breathing, as well as neck pain, headache. Percocet administered, pain improved. Intermittently desat to 86% on RA when sleeping, O2 2l applied, SPO2 around 96%. [employer] monitoring. Many crackles throughout the left lung with some wheezes. Coarse lung sounds and some wheezes at right lung. NEB administered by RT.
[2017-02-14 07:20] VITALS: PULSE 65; RESP 20; O2SAT 97
[2017-02-14] MEDS: Albuterol-Ipratropium 3 mL Inhalation Solution NEB SCH ×2 (07:20→11:42)
[2017-02-14] MEDS ORDERED: LEVO750T9 PO (07:57)
[2017-02-14] MEDS ORDERED: POLY17PO6 PO (07:57)
[2017-02-14] MEDS ORDERED: OXYC-466 PO (07:57)
[2017-02-14] MEDS: Pantoprazole 40 mg ER24 Tablet PO SCH (08:01)
[2017-02-14] MEDS: levoFLOXacin 750 mg Tablet PO SCH (08:02)
--- NOTE | 2017-02-14 10:49 | PCM.DIMED ---
Discharge Instructions Date of Service February 14, 2017 Dates of Hospitalization February 01, 2017 at 02:46 Discharge Diagnosis Discharge Diagnosis Acute hypoxic respiratory failure secondary to community acquired pneumonia, presenting with sepsis Left perihilar lession, likely due to pneumonia chronic migraine GREEN chronic pain syndrome, Medication Instructions Additional med instructions Please take Levaquin, antibiotics for 3more days Diet Discharge Diet: No restrictions Activity Discharge Activity: No restrictions Call your provider Call your provider for: Shortness of breath Patient Instructions Patient Instructions Your hospitalized with difficulty breathing, cough and phlegm, likely due to pneumonia. You were treated appropriately with antibiotics, condition improved significantly. Please follow medicine instruction as above Please follow up with your primary doctor in 2 weeks Please use oxygen at night until your respiratory symptoms improve, it is most likely temporary measures Please note that given your lesions in your right lung, you need repeat CT or CXR in 3month to see resolution of changes. Please follow up with your pain specialist as scheduled. Follow-up Provider: Pieter Rhodes MD Follow-up with PCP in: 2 weeks Yasmeen Cuenca MD February 14, 2017 10:48
--- NOTE | 2017-02-14 11:12 | NUR ---
Social Work: Discharge Data: Pt is on day 13 of hospitalization. EMR reviewed. D/C orders are in. Pt declined HH. RT setting up home O2. No d/c planning needs at this time. [employer] will continue to follow if needs arise. Assessment: Pt who is independent at baseline. Plan: Pt will d/c home via POV today. Pt declined HH. RT setting up home O2. No d/c planning needs at this time. [employer] will continue to follow if needs arise. DONELL Shin
[2017-02-14 11:42] VITALS: PULSE 70; RESP 20; O2SAT 95
[2017-02-14 12:46] VITALS: BP 96/67; PULSE 98; RESP 16; O2SAT 95
--- NOTE | 2017-02-14 12:49 | NUR ---
Discharge Pt d/c home with at this time, on a wc with an aide. VSS. IV d/c. Discharge info discussed with pt, while present. Family denied having questions. All personal belongings left with pt. Kirill schedule to meet pt at home to set up home O2, confirmed with RT here.
--- NOTE | 2017-02-14 22:47 | PCM.DC.MED ---
Discharge Summary Date of Service February 14, 2017 Dates of Hospitalization Date of Hospital Admission February 01, 2017 at 02:46 Date of Discharge: February 14, 2017 Providers: Admitting Physician: Lala Luciano DO Primary Care Physician: Pieter Freire MD Attending Physician: Lala Luciano DO Diagnosis at Time of Discharge Diagnosis at Time of Discharge acute dx Acute hypoxic respiratory failure secondary to community acquired pneumonia, presenting with sepsis Left perihilar lession, likely due to pneumonia chronic migraine GREEN chronic pain syndrome, migraine GREEN, Normocytic normochromic anemia, Hyperglycemia, Hypovolemic hyponatremia, Chronic problems Possible History of chronic diastolic CHF, Chronic pain syndrome , Essential Hypertension, Hyperlipidemia GERD Sinusitis, chronic Constipation, secondary to opiates, Anxiety and depression Procedures XRay, CTs & MRIs CT ANGIO CHEST PULMONARY EMBOLISM IMPRESSION: Large area of left perihilar, masslike consolidation presumably pneumonia although recommend short interval followup with repeat radiographs or CT after treatment, to exclude neoplasm. No evidence of pulmonary embolism. Mild cardiomegaly. Dictated by: Duarte Wheatley M.D. on 02/01/2017 at 10:05 MRI BRAIN WITH AND WITHOUT CONTRAST IMPRESSION: Bilateral (T2 hypointense) maxillary sinus disease as detailed above. 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 Scattered bilateral mastoid air cell fluid. This is technically age indeterminate and recommend clinical correlation. No abnormal enhancement. Dictated by: Duarte Wheatley M.D. on 02/03/2017 at 9:24 X-RAY CHEST ONE VIEW, PORTABLE IMPRESSION: Worsening multifocal air space opacities likely pneumonia. Continued radiographic surveillance to resolution is recommended. Dictated by: Edward SILVERMAN Interpreted: Angela Loza MD on 02/04/2017 at 11:19 X-RAY KUB IMPRESSION: Nonspecific bowel gas pattern. If patient's symptoms persist, recommend repeat imaging or CT. Dictated by: Edward SILVERMAN Interpreted: Angela Loza MD on 02/04/2017 at 11:22 PROCEDURE: CT CHEST WITH CONTRAST ([id number]) INDICATIONS: possible left hilar mass on chest x-ray TECHNIQUE: After the administration of intravenous contrast, 5 mm thick sections acquired from the pulmonary apices to the posterior costophrenic angles. 7 mm thick coronal and sagittal MIP reformats were acquired. For radiation dose reduction , the following was used: automated exposure control, adjustment of mA and/or kV according to patient size. COMPARISON: [facility], CT, CT ANGIO CHEST PE, 02/01/2017, 1:56. [facility], CR, XR CHEST 2VW, 01/31/2017, 17:42. [facility], CR, XR CHEST 2VW, 11/02/2016, 20:35. [facility], CR, XR CHEST 2VW, 02/07/2017, 8:45. FINDINGS: Image quality: Excellent. Lungs and pleura: Is identified on the 02/01/17 CT chest examination, there is an appearance of left perihilar consolidation with groundglass like opacities. There has been minimal interval improvement compared to prior exam. This corresponds to the chest x-ray abnormality of 02/07/17. Subcentimeter areas of groundglass like opacity are present within the right lower lobe, new compared to prior exam. Dependent changes are present within the left base. Mediastinum: Heart size is normal. No pericardial effusion. No mediastinal or hilar adenopathy by size criteria. Thoracic aorta and central pulmonary arteries are normal in size. Esophagus is normal in caliber. No hiatal hernia. Bones and chest wall: No suspicious bony lesions. No vertebral body compression fractures. No axillary or supraclavicular adenopathy by size criteria. Thyroid gland is unremarkable. Abdomen: Visualized upper abdominal solid organs appear normal. Upper abdominal bowel loops are normal in caliber. IMPRESSION: 1. Persistent appearance of left perihilar consolidation mass or groundglass opacities as identified on the 02/01/17 exam, demonstrating minimal interval improvement. Small sub-centimeters groundglass opacity are present at the right base, appearing new. Overall appearance is suggestive of infection or inflammation. Recommend interval followup after appropriate therapy to document resolution and exclude presence of underlying mass lesion. Dictated by: Esperanza Willams M.D. on 02/08/2017 at 10:43 Approved by: Esperanza Willams M.D. 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 She was seen at yesterday and given a shot of Rocephin and started on a [id number]-venktaa, but was instructed to go to the ED if symptoms worsen. Today she reports continued fever, a nonproductive cough, myalgias, nausea, and some vomiting, dizziness, and headache, so she came to the ED for further treatment. She has been unable to tolerate much oral intake and has had decreased urine output. She denies any abdominal pain, diarrhea, dysuria, or rash. She currently lives in [place] with her family, and has not had any sick contacts. She is currently retired and denies any recent travels or recent healthcare contact. She reports the symptoms came on fairly abruptly 2 days ago. She denies any history of smoking or COPD. She does have asthma and has been using her inhalers more frequently. She does not some pleuritic chest pain with deep breaths. In the ED she was noted to be febrile with temperature 37.9C. Yesterday at urgent care her temperature was noted to be 38.6C. Her pulse currently is 100 , with a respiratory of 16 and blood pressure 122/74 and saturating approximately 94% on room air. Initial CBC was remarkable for a hemoglobin of 11.3 and white count was 5.7 CMP was remarkable for sodium of 130, chloride of 95, creatinine of 0.62, lactic acid 1.7 UA was unremarkable Her d-dimer was moderately elevated, a CTA of her chest was performed which showed no evidence of pulmonary embolism, but there was a masslike consolidation left upper lobe, with diffuse left-sided reticulonodular infiltrates which is suspicious for pneumonia, but a neoplasm could not be excluded. 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 Patient was diagnosed with sepsis, acute hypoxic respiratory failure secondary to pneumonia. Hospital day #11. Brief hospital course. patient was admitted with acute hypoxic respiratory failure secondary to CAP, presenting with sepsis, - Pneumonia presenting with peribronchial consolidation and mass-like lesion on CTA of chest at Left hilar lesions. Follow up blood cultures are negative Viral respiratory PCR panel negative The urine strep and urine Legionella antigens negative. patient was started with Rocephin and Azithromycin changed to oral Levaquin for CAP. However, pt had hypoxic episode at night likely resulted from pneumonia, probable CHF. pt required O2 supplement. Plan is to set up O2 [id number] at night for the time being and finish the whole course of abx. Left perihilar lesion ddx: mass vs infection vs inflammation, Given air- bronchogram, no discrete mass, it was thought to be from pneumonia and pt denied constitutional sx suggestive of lung CA, non smoker, which suggestive of lung CA. plan was to repeat CT chest in 3month to resolution of lesion. migraine GREEN, POA, controlled with sumatriptan 100mg daily prn, required 50mg more today. Normocytic normochromic anemia, present on admission, active, stable, Iron low, sat low, TIBC normal, probably iron deficiency anemia as well as anemia of chronic disease Hyperglycemia, present on admission, resolved Hypovolemic hyponatremia, present on admission, resolved.Responded nicely to normal saline. IVF stopped. Chronic problems Possible History of chronic diastolic CHF, Patient reports a history of CHF, but last echo showed LVEF of 60% with no discernible diastolic dysfunction, remained euvolemic Chronic pain syndrome , POA and active, Continue with home medications Essential Hypertension, POA and stable, Hyperlipidemia GERD Sinusitis, chronic Constipation, secondary to opiates, Anxiety and depression Exam Vital Signs (Last) Date Time Temp Pulse Resp B/P Pulse Ox O2 Delivery O2 Flow Rate FiO2 02/14/17 12:46 36.9 98 16 96/67 95 Room Air 02/12/17 16:37 1.00 Exam looked weak, NAD, comfortably laying down on the bed no JVD, MMM, no LAD RRR, nl s1, s2 no mrg Lt basilar decreased BS, crackles, S,ND,NT,normoactive BS+ warm, no edema, pulses 2/2 Test 02/01/17 00:03 02/01/17 01:07 02/01/17 01:11 02/01/17 04:55 Hemoglobin A1c 5.2% (4.8-5.6) Troponin T 0.010ug/L (0.0-0.011) Pro-B-Type Natriuretic Peptide 112.0pg/mL (0-287) Urine Color Yellow (YELLOW) Urine Appearance Clear (CLEAR,HAZY) Urine pH 5.5 (5.0-8.0) Urine Specific [place] 1.005 (1.003-1.035) Urine Protein Negativemg/dL (NEG,TRACE) Urine Glucose (UA) Negativemg/dL (NEGATIVE) Urine Ketones 15mg/dL (NEGATIVE) Urine Occult Blood Negative (NEGATIVE) Urine Nitrite Negative (NEGATIVE) Urine Bilirubin Negative (NEGATIVE) Urine Urobilinogen Normalmg/dL (NORMAL) Urine Leukocyte Esterase Negative (NEGATIVE) Urine RBC 0-2/hpf (0-2) Urine WBC 0-5/hpf (0-5) Urine Epithelial Cells Moderate/hpf (NONE-MOD) Urine Crystals None seen (NONE SEEN) Urine Bacteria Few/hpf (NONE-FEW) Urine Hyaline Casts None/lpf (NONE) Urine Granular Casts None seen (NONE SEEN) Urine Waxy Casts None seen (NONE SEEN) Urine Red Blood Cell Casts None seen (NONE SEEN) Urine White Blood Cell Casts None seen (NONE SEEN) Urine Mucus Present (None Seen) Urine Trichomonas None seen (NONE SEEN) Urine Yeast None (NONE SEEN) Urinalysis Comment None Urine Culture Reflexed Not indicated Urine Legionella pneumophilia Ag Negative (Negative) D-Dimer 1.42mg/L FEU (<0.50) Hold Urine Received (Received) Test 02/01/17 05:05 02/02/17 09:50 02/07/17 06:23 02/11/17 07:20 Lactic Acid Level 1.2mmol/L (0.4-2.0) Iron Level 22ug/dL (35-150) Total Iron Binding Capacity 273ug/dL (250-450) Percent Iron Saturation 8%sat (15-50) Unsaturated Iron Binding 250.8ug/dL Erythrocyte Sedimentation Rate 40mm/hr (0-40) C-Reactive Protein 3.2mg/dL (0.0-0.5) Procalcitonin 0.06ng/mL (0.00-0.08) Test 02/12/17 06:40 02/14/17 05:15 Magnesium Level 2.1mg/dL (1.6-2.6) White Blood Count 4.6th/mm3 (3.8-10.1) Red Blood Count 3.92mil/mm3 (3.90-5.20) Hemoglobin 12.2g/dL (12.0-15.6) Hematocrit 36.6% (35.0-46.0) Mean Corpuscular Volume 93.4fL (81-100) Mean Corpuscular Hemoglobin 31.1pg (27.0-35.0) Mean Corpuscular Hemoglobin Concent 33.3% (32.0-37.0) Red Cell Distribution Width 12.5% (12.3-15.4) Platelet Count 286bil/L (150-400) Neutrophils (%) (Auto) 35.1% (40-74) Lymphocytes (%) (Auto) 52.1% (14-46) Monocytes (%) (Auto) 8.7% (4-12) Eosinophils (%) (Auto) 3.5% (0-5) Basophils (%) (Auto) 0.4% (0-3) Sodium Level 140mEq/L (134-144) Potassium Level 4.5mEq/L (3.5-5.2) Chloride Level 101mEq/L (97-108) Carbon Dioxide Level 26mmol/L (18-29) Blood Urea Nitrogen 16mg/dL (6-24) Creatinine 0.72mg/dL (0.57-1.00) Estimat Glomerular Filtration Rate 119mL/min (>59) Glucose Level 102mg/dL (60-99) Calcium Level 9.6mg/dL (8.5-10.1) Total Bilirubin 0.2mg/dL (0.0-1.2) Aspartate Amino Transf (AST/SGOT) 21U/L (0-50) Alanine Aminotransferase (ALT/SGPT) 17U/L (0-32) Alkaline Phosphatase 75U/L (25-165) Total Protein 6.7g/dL (6.4-8.4) Albumin 3.9g/dL (3.4-5.0) Microbiology Results Respiratory viral PCR and blood cultures are negative. Discharge Medications Discharge Medications Esomeprazole Magnesium (Esomeprazole Magnesium) 40 Mg Capsule.dr 40 MG PO BID ( Reported) Furosemide (Lasix) 40 Mg Tablet 40 MG PO DAILY (Reported) Levofloxacin (Levaquin) 750 Mg Tablet 750 MG PO DAILYAC Prescribed by: YASMEEN ARANGO MD Metoprolol Tartrate (Metoprolol Tartrate) 25 Mg Tablet 25 MG PO BID (Reported) Potassium Chloride (Potassium Chloride) 10 Meq Capsule.er 10 MEQ PO DAILY ( Reported) TAKE WITH FOOD oxyCODONE-Acetaminophen 10-325 mg (oxyCODONE-Acetaminophen 10-325 mg) 1 Each Tablet 1 TABLET PO QID (Reported) As needed Clonazepam (Clonazepam) 2 Mg Tablet 2 MG PO BID PRN PRN For Anxiety (Reported) Docusate Sodium (Colace) 100 Mg Capsule 100 MG PO DAILY PRN PRN For Constipation (Reported) Metoclopramide (Reglan) 10 Mg Tablet 10 MG PO QID PRN PRN For Nausea (Reported) Ondansetron ODT (Ondansetron ODT) 8 Mg Tab.rapdis 8 MG PO Q4H PRN PRN For Nausea Prescribed by: VÍCTOR SRINIVASAN MD Polyethylene Glycol 3350 (Miralax) 17 Gm Powd.pack 17 GM PO DAILY PRN PRN For Constipation Prescribed by: YASMEEN ARANGO MD Rizatriptan (Rizatriptan) 10 Mg Tablet 1 TABLET PO Q2H PRN PRN Headache ( Reported) Sennosides/Docusate Sodium (Senna-Docusate Sodium Tablet) 1 Each Tablet 1-2 EACH PO BID PRN PRN For Constipation (Reported) Trazodone (Trazodone) 100 Mg Tablet 200 MG PO HS PRN PRN Insomnia (Reported) Zolpidem (Ambien) 10 Mg Tablet 10 MG PO HS PRN PRN For Insomnia (Reported) oxyCODONE-Acetaminophen 10-325 mg (oxyCODONE-Acetaminophen 10-325 mg) 1 Each Tablet 1 TAB PO Q6H PRN PRN For Pain Prescribed by: YASMEEN ARANGO MD Additional med instructions Please take Levaquin, antibiotics for 3more days Followup Plan Disposition: home Discharge Diet: No restrictions Discharge Activity: No restrictions Patient Instructions Your hospitalized with difficulty breathing, cough and phlegm, likely due to pneumonia. You were treated appropriately with antibiotics, condition improved significantly. Please follow medicine instruction as above Please follow up with your primary doctor in 2 weeks Please use oxygen at night until your respiratory symptoms improve, it is most likely temporary measures Please note that given your lesions in your right lung, you need repeat CT or CXR in 3month to see resolution of changes. Please follow up with your pain specialist as scheduled. Follow-up Provider: Pieter Rhodes MD Follow-up with PCP in: 2 weeks Time spent 65min Yasmeen Arango MD February 14, 2017 22:47
== END 2017-02-14 12:56 | disposition home or self-care (01) | DRG 871 ==
LOC: SED 22:35 → PCC 02-01 02:46 → MPC 02-05 14:57
PROVIDERS: ADMIT Internal Medicine; ATTEND Internal Medicine
DX: A41.9 Sepsis, unspecified organism (principal); J18.9 Pneumonia, unspecified organism; J96.01 Acute respiratory failure with hypoxia; E87.1 Hypo-osmolality and hyponatremia; I50.32 Chronic diastolic (congestive) heart failure; I10 Essential (primary) hypertension; K21.9 Gastro-esophageal reflux disease without esophagitis; G62.89 Other specified polyneuropathies; R73.9 Hyperglycemia, unspecified; E86.0 Dehydration; J45.909 Unspecified asthma, uncomplicated; E78.5 Hyperlipidemia, unspecified; G89.4 Chronic pain syndrome; F41.9 Anxiety disorder, unspecified; F32.9 Major depressive disorder, single episode, unspecified; D50.9 Iron deficiency anemia, unspecified; K59.03 Drug induced constipation; T40.605A Adverse effect of unspecified narcotics, initial encounter; J32.9 Chronic sinusitis, unspecified; G43.909 Migraine, unspecified, not intractable, without status migrainosus